=== PATIENT | male | born 1970 | race Caucasian/White ===

== ENCOUNTER 2017-06-25 11:17 | Day surgery (SDC) | payer OTHER, SELFPAY ==
[2017-06-25] VITALS (8 sets, daily range): BP systolic 117–133; BP diastolic 80–89; PULSE 61–78; RESP 16–18; TEMP 36.1–36.9; O2SAT 96–100; BMI 20.9
--- NOTE | 2017-06-25 11:28 | EKG12_ITS ---
Test Reason : PREOP Blood Pressure : / mmHG Vent. Rate : 067 BPM Atrial Rate : 067 BPM P-R Int : 152 ms QRS Dur : 086 ms QT Int : 392 ms P-R-T Axes : 056 067 027 degrees QTc Int : 414 ms Normal sinus rhythm Nonspecific T wave abnormality Abnormal ECG When compared with ECG of 01-SEP-2006 10:45, MANUAL COMPARISON REQUIRED, DATA IS UNCONFIRMED Confirmed by MARIJA GREENBERG ([id number]), marketing editor JONG PRADHAN ([id number] on 06/30/2017 4:08:48 PM Referred By: Marciano Paredes Confirmed By:MARIJA GREENBERG
[2017-06-25] MEDS: Cefazolin 2 GM in 0.9% Normal Saline 100 ML IV (13:27)
[2017-06-25] MEDS: Bupivacaine Mpf 0.5% 30 ML VIAL (14:20)
--- NOTE | 2017-06-25 14:31 | PCM.DC.HER ---
Discharge Diet: Light diet - advance as tolerated Discharge Activity: Return to Normal Activity, May Not Drive - for 2-3 days or while taking narcotic pain meds., May Shower - with the bandage in place 1-2 days after surgery. Lifting Restrictions: 20 pounds for 2 weeks. Additional Activity Instructions:: Climbing stairs is fine, walking is encouraged. Sitting in bed may be uncomfortable. Sitting up using your lateral muscles (sitting up sideways) is usually more comfortable. Do not drive, work heavy equipment of sign legal documents for 24 hours. If your hernia repair was an ingunial repair, you may have scrotal swelling, an ice pack and/or athletic support can provide more comfort. Pain medications may cause nausea, you should typically eat light foods as you take your pain medications. Pain medications may also cause constipation. If you have difficulty with this, discuss with your doctor. Call your doctor if your incision/area has: Continuous Slow Oozing, Sudden Increased Bleeding, Increased Pain/ Swelling, Increased Redness, Foul Smelling Discharge Call your doctor if you observe: Fever of 101 or Higher Suture Line Care: Avoid Pulling/Pushing, Avoid Pinching/Bending Change Dressing in (Days):: 3 - Leave steri-strips for 1 week. May protect with a guaze bandaid. Cleanse incision/area with: Keep Dressing Clean & Dry Allergies/Adverse Reactions: Allergies No Known Allergies Allergy (Unverified 06/24/17 09:54) Medications to take at Discharge bupropion HCl SR 150 mg tablet,12 hr sustained-release 450 mg PO QDAY 06/15/17 Oxycodone HCl/Acetaminophen [Percocet 5/325] 1 - 2 tablet PO Q4H PRN PRN 4 Days #10 tablet 06/25/17 The following prescriptions were given: Oxycodone HCl/Acetaminophen [Percocet 5/325] 1 - 2 tablet PO Q4H PRN PRN 4 Days #10 tablet PRN Reason: Pain Primary Care Physician: Jacob Curry MD [Primary Care Provider] - Please Follow Up With: Marciano Paredes MD When: Please call to schedule 2 week follow up appointment. [phone]
--- NOTE | 2017-06-25 14:33 | PCM.OPRPT ---
Problem List (1) Bilateral inguinal hernia, without obstruction or gangrene, not specified as recurrent Status: Acute Qualifiers: Recurrence: non-recurrent Qualified Code(s): K40.20 - Bilateral inguinal hernia, without obstruction or gangrene, not specified as recurrent Report of Operation Date of Procedure: 06/25/17 Pre-Operative Diagnosis: Right inguinal hernia Post-Operative Diagnosis: Bilateral inguinal hernia Surgery/Procedure Performed:: Robotic assisted laparoscopic bilateral inguinal hernia repair with mesh Specimen's removed: None Description of Procedure: The patient was brought back to the operating room and general anesthesia was induced. The abdomen was prepped and draped in usual sterile fashion. Next an incision was made superior to the umbilicus and deepened to the fascia. The fascia was grasped and elevated. A Veress needle was placed into the abdomen and a drop test was performed and was normal. The abdomen was then insufflated to 15 mmHg the Veress needle was then removed and a port was placed through this incision. A camera was placed through this incision and the abdomen was inspected for any injuries upon entry and there were none. Next the inguinal regions were inspected and the patient had bilateral inguinal hernias. We plan to proceed with bilateral inguinal hernia repair as discussed preoperatively. Under direct visualization a port was placed in the right and left lateral sidewall. The patient was then placed in steep Trendelenburg position and the robot was docked. First the right side was addressed. The peritoneum was incised and this dissection was carried inferiorly until the hernia sac was reduced. Once the dissection was fully completed a piece of pro-dialysis patient care technician mesh was trimmed and placed in the right inguinal region. The peritoneum was then reapproximated using a running V lock suture. There was good coverage of the mesh. Next attention was paid to the left inguinal region. The left inguinal hernia was actually larger than the right. The peritoneum on the side was incised and this dissection was taken inferiorly until the psoas muscle was reached. The hernia sac was reduced and dissected free. A piece of pro-dialysis patient care technician mesh was placed in the abdomen and unfolded and placed over the hernia defect. The peritoneum was re-approximated using a running V lock suture. At the end of the case both pieces of mesh were secure and completely covered with peritoneum. Next the instruments were removed and the robot was undocked. The ports were removed under direct visualization and the port sites were injected with lidocaine and closed with interrupted 4-0 Monocryl sutures. Steri-Strips and bandages were then applied. The patient was taken to PACU in stable condition tolerated the procedure well. Grafts/Implants Used: Pro-dialysis patient care technician mesh bilaterally
--- NOTE | 2017-06-25 15:08 | OP.PCM_ITS ---
Problem List (1) Bilateral inguinal hernia, without obstruction or gangrene, not specified as recurrent Status: Acute Qualifiers: Recurrence: non-recurrent Qualified Code(s): K40.20 - Bilateral inguinal hernia, without obstruction or gangrene, not specified as recurrent Report of Operation Date of Procedure: 06/25/17 Pre-Operative Diagnosis: Right inguinal hernia Post-Operative Diagnosis: Bilateral inguinal hernia Surgery/Procedure Performed:: Robotic assisted laparoscopic bilateral inguinal hernia repair with mesh Specimen's removed: None Description of Procedure: The patient was brought back to the operating room and general anesthesia was induced. The abdomen was prepped and draped in usual sterile fashion. Next an incision was made superior to the umbilicus and deepened to the fascia. The fascia was grasped and elevated. A Veress needle was placed into the abdomen and a drop test was performed and was normal. The abdomen was then insufflated to 15 mmHg the Veress needle was then removed and a port was placed through this incision. A camera was placed through this incision and the abdomen was inspected for any injuries upon entry and there were none. Next the inguinal regions were inspected and the patient had bilateral inguinal hernias. We plan to proceed with bilateral inguinal hernia repair as discussed preoperatively. Under direct visualization a port was placed in the right and left lateral sidewall. The patient was then placed in steep Trendelenburg position and the robot was docked. First the right side was addressed. The peritoneum was incised and this dissection was carried inferiorly until the hernia sac was reduced. Once the dissection was fully completed a piece of pro-hide stretcher hand mesh was trimmed and placed in the right inguinal region. The peritoneum was then reapproximated using a running V lock suture. There was good coverage of the mesh. Next attention was paid to the left inguinal region. The left inguinal hernia was actually larger than the right. The peritoneum on the side was incised and this dissection was taken inferiorly until the psoas muscle was reached. The hernia sac was reduced and dissected free. A piece of pro-hide stretcher hand mesh was placed in the abdomen and unfolded and placed over the hernia defect. The peritoneum was re-approximated using a running V lock suture. At the end of the case both pieces of mesh were secure and completely covered with peritoneum. Next the instruments were removed and the robot was undocked. The ports were removed under direct visualization and the port sites were injected with lidocaine and closed with interrupted 4-0 Monocryl sutures. Steri-Strips and bandages were then applied. The patient was taken to PACU in stable condition tolerated the procedure well. Grafts/Implants Used: Pro-hide stretcher hand mesh bilaterally
[2017-06-25] MEDS: oxyCODONE 5 MG Tablet PO (16:23)
== END 2017-06-25 17:04 | disposition home or self-care (01) ==
LOC: SDC 11:19 → AC 11:19
PROVIDERS: Family Provider Family Medicine; PCP Family Medicine; Visit Provider Surgery
PROC: (CPT 49650; principal; 2017-06-25 12:40)
DX: K40.00 Bilateral inguinal hernia, with obstruction, without gangrene, not specified as recurrent (principal); F32.9 Major depressive disorder, single episode, unspecified; K58.9 Irritable bowel syndrome, unspecified; F17.220 Nicotine dependence, chewing tobacco, uncomplicated; F17.200 Nicotine dependence, unspecified, uncomplicated; Z79.899 Other long term (current) drug therapy
CPT/HCPCS: 00840; 49650; 93005; J7120

== ENCOUNTER 2018-09-06 17:52 | Emergency (ER) | payer OTHER, SELFPAY ==
[2018-09-06 17:54] VITALS: BP 117/66; PULSE 81; RESP 18; TEMP 36.5; O2SAT 97; BMI 19.3
[2018-09-06 18:13] LABS: Bacteria 0 SEEN /hpf (None Seen); Mucous, Urine 0 SEEN /hpf (<or=2+); Squamous Epithelial Cells - UA 0 SEEN /hpf (0-5)
[2018-09-06 18:16] LABS: Color, Urine Yellow (Yellow); Glucose, Dipstick Normal (Normal); Ketone-Dipstick 5 mg/dl (Negative); Leukocyte Esterase-Dipstick Negative /ul (Negative); Nitrite-Dipstick Negative (Negative); Occult Blood-Urine 250 /ul (Negative); Protein-Dipstick 30 mg/dl (Negative); Specific Gravity, Urine 1.025 (1.002-1.030); Urine Bilirubin Dipstick Negative (Negative); Urine Clarity Cloudy (Clear); Urine Urobilinogen 1 mg/dl (Normal)
[2018-09-06] MEDS: 0.9% Normal Saline 1,000 ML 1000 ML IV (18:17)
--- NOTE | 2018-09-06 18:19 | ED.DCSUM_ITS ---
History of Present Illness Chief Complaint: Complaint Informant: Patient Onset: Today Context: Gradual Onset Timing: Continuous Current Severity: Moderate Maximum Severity: Moderate Narrative: The patient presents to the emergency department with dysuria, along with hematuria. He states he was in his normal state of health. He states that he was running today. He did a 3 mile run which is not abnormal for him. He states that he is having some pain in his penis and in his bladder. He states when he got back, he urinated and noticed a lot of blood. He is never had anything like this before. He denies any fevers or chills. He denies any history of kidney stone. The patient takes no anticoagulants. He is only on a daily antidepressant. He denies any penile discharge. He denies any pain in his groin. Prior similar symptoms: No Recent Illness/Hospitalization: No Past Medical History - Allergies and Home Meds Allergies/Adverse Reactions: Allergies No Known Allergies Allergy (Verified 09/06/18 17:53) Primary Care Physician: Jama Wright MD [STAFF PHYSICIAN] - Past Medical History: None Surgical History: herniorrhaphy Lives: With Family Smoking Status: Never smoker Alcohol: None Drugs: None Review of Systems General: Denies: Chills, Fever, Sweats Eyes: Denies: Visual changes - bilaterally, Diplopia ENT: Denies: Rhinorrhea, Sore throat Cardiovascular: Denies: Chest pain, Palpitations Respiratory: Denies: Dyspnea, Cough, Dyspnea on exertion Gastrointestinal: Denies: Abdominal pain, Nausea, Vomiting, Diarrhea, Melena, Hematochezia Genitourinary: Reports: Dysuria, Hematuria Musculoskeletal: Denies: Back pain, Extremity Pain Skin: Denies: Rash, Wounds Neurological: Denies: Headache, Weakness, Numbness Psych: Denies: Depression Endocrine: Denies: Polyuria Physical Exam Vital Signs/Narrative: Vital Signs Temp Pulse Resp BP Pulse Ox 09/06/18 17:54 97.7 F L 81 18 117/66 97 Inital Vital Signs reviewed: Yes General: Well nourished, Well developed, No Acute Distress Head: Normocephalic, Atraumatic Eyes: Perrl, EOMI ENT: Moist mucous membranes, No rhinorrhea Neck: Supple, Nontender Cardiovascular: Regular rate, Regular rhythm, No murmurs Respiratory: No distress, CTA bilaterally, Chest nontender Abdomen: Soft, Nontender, Normal bowel sounds, Tender - suprapubic Back: Nontender, Normal Inspection Extremities: Nontender, No edema Skin: Normal color, No rash Neurological: Alert, Oriented x3, Cranial nerves II-XII grossly intact, Normal Strength, Normal Sensation Psychological: Normal affect, Normal Mood Diagnostic/Tx/Re-eval Clinical Impression(s) from Imaging Studies Abdomen/Pelvis CT 09/06/18 18:37 IMPRESSION: Nonobstructing cascades are seen within the right kidney No stones are seen within the ureters and the ureters are not dilated. There are vascular cascades and seen within the pelvis If symptoms persist consider repeating study with intravenous contrast for further evaluation Individualized dose optimization techniques were used for this CT. at 1917 Reported and signed by: Keily Mccarty DO Electronically Signed: Keily Mccarty DO at 19:15 EDT Tel , Service support , Abnormal Lab Results 09/06/18 09/06/18 09/06/18 18:00 18:15 18:15 WBC 10.0 RBC 4.73 Hgb 14.8 Hct 42.7 MCV 90.3 MCH 31.3 MCHC 34.7 RDW 12.3 RDW Differential 40.7 Plt Count 233 MPV 9.6 Immature Gran % (Auto) 0.100 Neut % (Auto) 75.2 H Lymph % (Auto) 17.3 L Richardson % (Auto) 6.5 Eos % (Auto) 0.7 Baso % (Auto) 0.2 Absolute Neuts (auto) 7.5 Absolute Lymphs (auto) 1.73 Total Counted Not Reportable Sodium 140 Potassium 3.3 L Chloride 108 H Carbon Dioxide 27.0 Anion Gap 5 BUN 15 Creatinine 1.23 Estim Creat Clear Calc 63.58 Est GFR (MDRD) Af Amer 81 Est GFR (MDRD) Non-Af 67 BUN/Creatinine Ratio 12.2 Glucose 88 Calcium 9.4 Total Bilirubin 0.60 AST 21 ALT 28 Alkaline Phosphatase 57 Total Protein 7.5 Albumin 4.1 Globulin 3.4 Albumin/Globulin Ratio 1.2 Urine Color Yellow Urine Clarity Cloudy Urine pH 6.0 Ur Specific [place] 1.025 Urine Protein 30 H Urine Glucose (UA) Normal Urine Ketones 5 H Urine Occult Blood 250 H Urine Nitrite Negative Urine Bilirubin Negative Urine Urobilinogen 1 H Ur Leukocyte Esterase Negative Urine RBC > 100 SEEN Urine WBC 0-5 SEEN Ur Squamous Epith Cells 0 SEEN Urine Bacteria 0 SEEN Urine Mucus 0 SEEN - Medical Decision Making The patient presents to the emergency department with hematuria and pain. Clinically, his symptoms do seem consistent with kidney stone. His urine does show evidence of blood but no infection. Labs unremarkable. He declined analgesics. CT shows some stones within the right kidney, but nothing within the tract. My suspicion is that he likely passed a stone. He will be given a short course of analgesics and outpatient urology follow-up. He is comfortable with this plan of care. ED Disposition - Plan for ED Patient: Disposition: Home or Assisted Living Diagnosis: Kidney stone on right side Instructions: KIDNEY STONE, Passed Prescriptions: Hydrocodone Bitart/Apap 5-325 [[place] 5MG-325MG] 1 tab PO Q6H PRN PRN 3 Days #10 tab PRN Reason: Pain Prescription Printed Referrals: Jama Wright MD [STAFF PHYSICIAN] -
[2018-09-06 18:35] LABS: Absolute Lymphocyte Count 1.73 X10^3/ul (0.83-4.51); Absolute Neutrophil Count 7.5 X10^3/uL (2.0-7.7); Basophil# 0.02 X10^3/uL; Basophil% 0.2 % (0-1); Eosinophil# 0.07 X10^3/uL; Eosinophils% 0.7 % (0-5); Hematocrit 42.7 % (40-54); Hemoglobin 14.8 g/dl (13.0-16.5); Lymphocyte # 1.73 X10^3/ul (4.0); Lymphocyte % 17.3 % (19-41); Mean Corp Hgb Conc 34.7 g/gl (32-36); Mean Corpuscular Hgb 31.3 pg (27.0-32.0); Mean Corpuscular Volume 90.3 fL (80-94); Mean Platelet Vol. 9.6 fl (6.2-12.0); Monocyte# 0.65 X10^3/uL; Monocyte% 6.5 % (0-10); Neutrophil # 7.51 X10^3/uL (2.7-7.7); Neutrophil % 75.2 % (47-70); Platelet Count 233 K/mm3 (150-450); RBC Distribution Width CV 12.3 % (11.6-14.6); RBC Distribution Width SD 40.7 fl (35.1-43.9); Red Blood Count 4.73 M/mm3 (4.6-6.2)
--- NOTE | 2018-09-06 18:37 | CT_ITS ---
HISTORY:RT FLANK PAIN, HEMATURIA AFTER 3 MILE RUN, DIZZINESS TECHNIQUE:CT Abdomen And Pelvis W/O Contrast Axial CT images were obtained of the abdomen and pelvis without oral or IV contrast. Multiplanar rectructions were also obtained. A radiation dose optimization technique was used for this scan. # of images including paperwork:[id number] COMPARISON: None FINDINGS: LUNG BASES: Unremarkable. LIVER T BILIARY TRACT: Unremarkable. GALLBLADDER:No cholelithiasis. No intra-or extrahepatic ductal dilatation PANCREAS: Unremarkable for nonenhanced study SPLEEN: Unremarkable. ADRENAL GLANDS: Unremarkable. KIDNEYS/URETERS:There are nonobstructing calcification seen within the right kidney there is no hydronephrosis. I do not see stones within the ureters out of the distal ureters are not well visualized on the study BLADDER: Unremarkable. STOMACH, SMALL AND LARGE BOWEL: The stomach is unremarkable as is the small bowel There is no mechanical obstruction. There is retained fecal material throughout the colon. No diverticulitis APPENDIX: No appendicitis. ASCITES: Unremarkable. FREE AIR: Unremarkable. PELVIS: Unremarkable. AORTA: Unremarkable. LYMPH NODES: Unremarkable. OSSEOUS STRUCTURES: Unremarkable. CT/Abdomen/Pelvis without Cont IMPRESSION: Nonobstructing cascades are seen within the right kidney No stones are seen within the ureters and the ureters are not dilated. There are vascular cascades and seen within the pelvis If symptoms persist consider repeating study with intravenous contrast for further evaluation Individualized dose optimization techniques were used for this CT. at 1917 Reported and signed by: Keily Mccarty DO Electronically Signed: Keily Mccarty DO at 19:15 EDT Tel , Service support ,
[2018-09-06 18:38] LABS: Red Blood Cells-Urine > 100 SEEN /hpf (0-5); White Blood Cells 0-5 SEEN /hpf (0-5)
[2018-09-06 18:38] LABS: POSITIVE COUNT NO; POSITIVE DIFFERENTIAL NO; POSITIVE MORPHOLOGY NO
[2018-09-06 19:06] LABS: ALB/GLOB Ratio 1.2 RATIO (0.9-2.4); AST(SGOT) 21 U/L (15-37); Alanine Aminotransfer ALT/SGPT 28 U/L (16-61); Albumin, Serum 4.1 g/dL (3.2-5.0); Alkaline Phosphatase 57 U/L (45-117); Anion Gap 5 (5-15); BUN 15 mg/dL (7-18); BUN/Creat Ratio 12.2 RATIO (10-20); Calcium,Total 9.4 mg/dL (8.5-10.1); Chloride 108 mmol/L (98-107); Creatinine, Serum 1.23 mg/dL (0.70-1.30); EST Glomerular Filtration Rate 67 mL/min (>60); Est Glom Filt Rate - Afr Amer 81 mL/min (>60); Estimated Creatinine Clearance 63.58 ml/min; Globulin 3.4 g/dL (2.2-4.2); Glucose 88 mg/dL (74-106); Potassium 3.3 mmol/L (3.5-5.1); Protein, Total 7.5 g/dL (6.4-8.2); Sodium Level 140 mmol/L (136-145)
[2018-09-06 19:44] VITALS: BP 116/76; PULSE 91; RESP 16; O2SAT 97
== END 2018-09-06 19:45 | disposition home or self-care (01) ==
PROVIDERS: Emergency Provider Emergency Medicine; Family Provider Family Medicine; PCP Family Medicine
DX: N20.0 Calculus of kidney (principal)
CPT/HCPCS: 74176; 80053; 81001; 85025; 96360; 99284; J7030; A4216

== ENCOUNTER → 2018-10-22 08:07 | Outpatient (CLI) | payer OTHER, SELFPAY ==
[2018-10-22 08:03] VITALS: BMI 19.3
--- NOTE | 2018-10-22 08:08 | RAD_ITS ---
STUDY: X-RAY - LEFT KNEE REASON FOR EXAM: Chronic pain, no specific injury. TECHNIQUE: 4 view(s) of the knee. COMPARISON: None. FINDINGS: Normal visualized distal femur. Normal visualized proximal tibia and fibula. Normal proximal tibiofibular articulation. Normal medial femorotibial compartment. Normal lateral femorotibial compartment. Normal patellofemoral articulation. There is mild patellar tendinopathy. RAD/Knee 4 or More Views IMPRESSION: Mild patellar enthesopathy. Otherwise, unremarkable x-ray examination of the left knee. Electronically Signed: Stevie Stewart MD at 9:00 EDT Tel , Service support ,
== END ==
PROVIDERS: Family Provider Family Medicine; PCP Family Medicine; Referring Provider Orthopaedic Surgery; Visit Provider Orthopaedic Surgery
DX: M25.562 Pain in left knee (principal)
CPT/HCPCS: 73564

== ENCOUNTER → 2019-07-19 14:59 | Outpatient (CLI) | payer OTHER, SELFPAY ==
[2018-10-22 08:03] VITALS: BMI 19.3
[2019-07-19 17:44] LABS: Absolute Lymphocyte Count 2.67 X10^3/uL (0.83-4.51); Absolute Neutrophil Count 3.7 X10^3/uL (2.0-7.7); Basophil# 0.04 X10^3/uL; Basophil% 0.5 % (0-1); Eosinophil# 0.16 X10^3/uL; Eosinophils% 2.2 % (0-5); Hematocrit 44.1 % (40-54); Hemoglobin 14.9 g/dL (13.0-16.5); Lymphocyte # 2.67 X10^3/ul (4.0); Lymphocyte % 36.6 % (19-41); Mean Corp Hgb Conc 33.8 g/dL (32-36); Mean Corpuscular Hgb 30.6 pg (27.0-32.0); Mean Corpuscular Volume 90.6 fL (80-94); Mean Platelet Vol. 9.6 fl (6.2-12.0); Monocyte# 0.68 X10^3/uL; Monocyte% 9.3 % (0-10); NRBC Flagged by Analyzer 0 % (0-5); Neutrophil # 3.72 X10^3/uL (2.7-7.7); Neutrophil % 51.1 % (47-70); Platelet Count 281 K/mm3 (150-450); RBC Distribution Width CV 12.6 % (11.6-14.6); RBC Distribution Width SD 41.9 fl (35.1-43.9); Red Blood Count 4.87 M/mm3 (4.6-6.2); White Blood Count 7.3 K/mm3 (4.4-11.0)
[2019-07-19 17:52] LABS: Erythrocyte Sedimentation Rate 3 mm/hr (0-15)
[2019-07-19 18:12] LABS: ALB/GLOB Ratio 1.1 RATIO (0.9-2.4); AST(SGOT) 36 U/L (15-37); Alanine Aminotransfer ALT/SGPT 81 U/L (16-61); Albumin, Serum 3.8 g/dL (3.2-5.0); Alkaline Phosphatase 61 U/L (45-117); Anion Gap 8 (5-15); BUN 11 mg/dL (7-18); BUN/Creat Ratio 11.5 RATIO (10-20); CRP < 2.90 mg/L (0.0-3.0); Calcium,Total 8.9 mg/dL (8.5-10.1); Chloride 106 mmol/L (98-107); Creatinine, Serum 0.96 mg/dL (0.70-1.30); EST Glomerular Filtration Rate 89 mL/min (>60); Est Glom Filt Rate - Afr Amer 107 mL/min (>60); Globulin 3.4 g/dL (2.2-4.2); Glucose 84 mg/dL (74-106); Protein, Total 7.2 g/dL (6.4-8.2); Rheumatoid Factor < 10.0 IU/mL (<15); Sodium Level 141 mmol/L (136-145); T4 Free Direct 0.72 ng/dL (0.76-1.46); Thyroid Stim Hormone (TSH) 1.83 uIU/mL (0.358-3.74)
[2019-07-22 00:45] LABS: Anti-Nuclear Antibody Test Negative (.)
[2019-07-24 01:12] LABS: CCP IgG Antibodies 9 units (0-19)
== END ==
PROVIDERS: PCP Family Medicine; Referring Provider Family Medicine; Visit Provider Family Medicine
DX: M06.4 Inflammatory polyarthropathy (principal); K59.00 Constipation, unspecified; R60.9 Edema, unspecified; R61 Generalized hyperhidrosis
CPT/HCPCS: 36415; 80053; 84439; 84443; 85025; 85652; 86038; 86140; 86200; 86431

== ENCOUNTER → 2019-10-12 15:10 | Outpatient (CLI) | payer OTHER, SELFPAY ==
[2018-10-22 08:03] VITALS: BMI 19.3
[2019-10-12 17:26] LABS: Anion Gap 9 (5-15); BUN 11 mg/dL (7-18); BUN/Creat Ratio 7.8 RATIO (10-20); Calcium,Total 8.9 mg/dL (8.5-10.1); Chloride 103 mmol/L (98-107); Creatinine, Serum 1.41 mg/dL (0.70-1.30); EST Glomerular Filtration Rate 57 mL/min (>60); Est Glom Filt Rate - Afr Amer 69 mL/min (>60); Glucose 79 mg/dL (74-106); Magnesium 2.3 mg/dL (1.6-2.6); Potassium 3.4 mmol/L (3.5-5.1); Sodium Level 139 mmol/L (136-145)
== END ==
PROVIDERS: PCP Family Medicine; Visit Provider Family Medicine
DX: E87.6 Hypokalemia (principal)
CPT/HCPCS: 36415; 80048; 83735

== ENCOUNTER 2020-04-27 08:47 | Emergency (ER) | payer OTHER, SELFPAY ==
[2020-04-27 08:48] VITALS: BP 151/87; PULSE 91; RESP 16; TEMP 36.1; O2SAT 100; BMI 21.4
--- NOTE | 2020-04-27 09:02 | MRI_ITS ---
STUDY: MRI LUMBAR SPINE WITHOUT CONTRAST REASON FOR EXAM: Male, 49 years old. Back pain, L4/L5 paresthesias on left TECHNIQUE: Standardized fat and water weighted pulse sequences were obtained in the sagittal and axial planes. COMPARISON: CT abdomen and pelvis without contrast 09/06/2018. FINDINGS: T11-T12: (Sagittal only). Normal endplates. Normal disc height, hydration and morphology. Normal central canal and bilateral intervertebral neural foramina. T12-L1: (Sagittal only). Normal endplates. Normal disc height, hydration and morphology. Normal central canal and bilateral intervertebral neural foramina. Normal lumbar lordosis. There is no substantial scoliosis. Normal conus medullaris that terminates at the upper T12 vertebral body level. L1-2: Normal endplates. Normal disc height, hydration and morphology. Normal bilateral facet joints. Normal central canal and bilateral lateral recesses. Normal bilateral intervertebral neural foramina. L2-3: Normal endplates. Normal disc height, hydration and morphology. Normal bilateral facet joints. Normal central canal and bilateral lateral recesses. Normal bilateral intervertebral neural foramina. L3-4: Normal endplates. Normal disc height, hydration and morphology. Moderate flattening central canal stenosis with an AP canal diameter of 7.4 mm. This is secondary to developmentally short pedicles and dorsal epidural lipomatosis. Normal bilateral lateral recesses. Normal facet joints. Normal bilateral intervertebral neural foramina. L4-5: Normal endplates. Normal disc height and hydration. Small left posterior caudal disc extrusion with sequestration. This is causing left lateral recess stenosis and displacement of the left L5 nerve root sleeve. This is also causing moderately pronounced central canal stenosis with an AP canal diameter of 5.2 mm. Normal right lateral recess. Normal facet joints. Normal bilateral intervertebral neural foramina. L5-S1: Normal endplates. Normal disc height, hydration and morphology. Normal bilateral facet joints. Normal central canal and bilateral lateral recesses. Normal bilateral intervertebral neural foramina. Normal visualized sacral ala. Normal visualized paraspinous soft tissue structures. MRI/Spine Lumbar (Routine) IMPRESSION: 1. Small left L4-L5 posterior caudal disc extrusion with disc sequestration causing displacement of the left L5 nerve root sleeve, left lateral recess stenosis and moderately pronounced central canal stenosis. The AP canal diameter is 5.2 mm. When correlated with the CT abdomen and pelvis of 09/06/2018, this was a left L4-L5 posterior paramedian disc protrusion. The caudal disc extrusion with sequestration is a new finding. 2. Moderate flattening central canal stenosis at L3-L4 disc space level with an AP canal diameter of 7.4 mm. This is secondary to developmentally short pedicles and mild dorsal epidural lipomatosis. This is unchanged. Electronically Signed: Rustam Smith MD at 10:41 EST , Service support ,
--- NOTE | 2020-04-27 09:05 | ED.DCSUM_ITS ---
- ER Visit Summary Date of Service: 04/27/20 Chief Complaint: Back pain History of Present Illness: The patient is a [address] Jacob Curry. He reports that 3 days ago he was lifting a large chunk of snow when he felt an immediate pinch and stabbing pain in his back. Reports pain is 10 of 10 with movement 6 out of 10 at rest. Pain is worsened by standing up. Initially states pain is worsened by sitting or laying down. He is taking prednisone and Flexeril with minimal relief. Reports that radiates into his left leg. He denies any weakness in his legs. However he reports that he has paresthesias in his left foot. He denies problems with his bowels or his bladder. No groin numbness. Patient has never had anything like this before. He has not had back surgery. He denies fever, chills, and other red flags. On review of systems he does report he has had dysuria for the past 3 days. He has frequency for 2 months. Physical Examination: Vitals: Stable. Afebrile. General: A&O x 3. NAD. Cardiovascular exam: Regular rate and rhythm, no murmur, rub or gallop. Respiratory exam: Clear to auscultation bilaterally. No wheezes or stridor. Abdominal exam: Soft, nontender, nondistended, normal bowel sounds. No peritoneal signs. Back: Diffuse moderate tenderness to palpation over the lumbar spine and the paraspinous musculature in the lumbar region. No point tenderness. Negative straight leg bilaterally. 5/5 DF, PF, EHL bilaterally. Decreased sensation to light touch in an L4/L5 distribution to the left leg, but not the left thigh. Extremity: No clubbing, cyanosis, or edema. Test Results: CBC shows a white count of 14.0, stable neutrophils 87, lymphocytes of 9. Chem-7 shows a potassium 3.4, creatinine 1.3, glucose 161. Creatinine was 1.41 on October [id number]. UA is negative. Clinical Impression(s) from Imaging Studies Lumbar Spine MRI 04/27/20 09:02 IMPRESSION: 1. Small left L4-L5 posterior caudal disc extrusion with disc sequestration causing displacement of the left L5 nerve root sleeve, left lateral recess stenosis and moderately pronounced central canal stenosis. The AP canal diameter is 5.2 mm. When correlated with the CT abdomen and pelvis of 09/06/2018, this was a left L4-L5 posterior paramedian disc protrusion. The caudal disc extrusion with sequestration is a new finding. 2. Moderate flattening central canal stenosis at L3-L4 disc space level with an AP canal diameter of 7.4 mm. This is secondary to developmentally short pedicles and mild dorsal epidural lipomatosis. This is unchanged. Electronically Signed: Rustam Smith MD at 10:41 EST , Service support , Emergency Department Course and Treatment: Patient had an IV placed. Is given morphine and Zofran IV. He is resting more comfortably. Treatment Plan: The patient was discussed with Dr. Turner who will see him next week. He does not want him put on more steroids. He will be discharged with prescription for Percocet. We did discuss the signs and symptoms of cauda equina syndrome and he was instructed to return for these. Disposition: To home in improved and stable condition. Impression: 1. L4/L5 disc herniation. This note was generated with [employer] dictation software. It may contain incorrect words, spelling, and punctuation that were not noted in review of the chart prior to signing ED Disposition - Plan for ED Patient: Instructions: ED Herniated Intervertebral Disk Prescriptions: Docusate Sodium [Colace] 100 mg PO DAILY #20 capsule Oxycodone HCl/Acetaminophen [Percocet 5/325] 1 tablet PO Q6H PRN PRN 3 Days #12 tablet PRN Reason: Pain Referrals: Elliott Tunrer DO [STAFF PHYSICIAN] - 3-5 Days
[2020-04-27] MEDS: Ondansetron 4 MG/2 ML Vial IV (09:12)
[2020-04-27] MEDS: Morphine 4 MG/ML Syringe IV (09:12)
[2020-04-27 09:15] LABS: Bacteria 0 SEEN /hpf (None Seen); Mucous, Urine 0 SEEN /hpf (<or=2+); Red Blood Cells-Urine 0 SEEN /hpf (0-5); Squamous Epithelial Cells - UA 0 SEEN /hpf (0-5); White Blood Cells 0 SEEN /hpf (0-5)
[2020-04-27 09:17] LABS: Color, Urine Yellow (Yellow); Glucose, Dipstick Normal (Normal); Ketone-Dipstick Negative (Negative); Leukocyte Esterase-Dipstick Negative /ul (Negative); Nitrite-Dipstick Negative (Negative); Occult Blood-Urine 10 /ul (Negative); Protein-Dipstick Negative (Negative); Urine Bilirubin Dipstick Negative (Negative); Urine Clarity Clear (Clear); Urine Urobilinogen Normal (Normal)
[2020-04-27 09:24] LABS: Absolute Lymphocyte Count 1.27 X10^3/uL (0.83-4.51); Absolute Neutrophil Count 12.2 X10^3/uL (2.0-7.7); Basophil# 0.02 X10^3/uL; Basophil% 0.1 % (0-1); Eosinophil# 0.02 X10^3/uL; Eosinophils% 0.1 % (0-5); Hematocrit 45.2 % (40-54); Hemoglobin 15.1 g/dL (13.0-16.5); Lymphocyte # 1.27 X10^3/ul (4.0); Lymphocyte % 9.1 % (19-41); Mean Corp Hgb Conc 33.4 g/dL (32-36); Mean Corpuscular Hgb 31.3 pg (27.0-32.0); Mean Corpuscular Volume 93.8 fL (80-94); Mean Platelet Vol. 9.3 fl (6.2-12.0); Monocyte# 0.41 X10^3/uL; Monocyte% 2.9 % (0-10); NRBC Flagged by Analyzer 0 % (0-5); Neutrophil # 12.18 X10^3/uL (2.7-7.7); Neutrophil % 87.2 % (47-70); Platelet Count 269 K/mm3 (150-450); RBC Distribution Width CV 12.6 % (11.6-14.6); Red Blood Count 4.82 M/mm3 (4.6-6.2)
[2020-04-27 09:37] LABS: Anion Gap 8 (5-15); BUN 10 mg/dL (7-18); BUN/Creat Ratio 7.2 RATIO (10-20); Calcium,Total 9.1 mg/dL (8.5-10.1); Chloride 105 mmol/L (98-107); Creatinine, Serum 1.38 mg/dL (0.70-1.30); EST Glomerular Filtration Rate 58 mL/min (>60); Est Glom Filt Rate - Afr Amer 70 mL/min (>60); Estimated Creatinine Clearance 59.58 ml/min; Glucose 161 mg/dL (74-106); Potassium 3.4 mmol/L (3.5-5.1); Sodium Level 141 mmol/L (136-145)
[2020-04-27] MEDS: 0.9% Normal Saline 1,000 ML 999 ML IV (10:31)
[2020-04-27 10:47] VITALS: PULSE 89; RESP 15; O2SAT 99
[2020-04-27 11:34] VITALS: PULSE 86; RESP 16; O2SAT 99
== END 2020-04-27 11:35 | disposition home or self-care (01) ==
LOC: ED 09:25
PROVIDERS: Emergency Provider Emergency Medicine; PCP Family Medicine
DX: M51.26 Other intervertebral disc displacement, lumbar region (principal)
CPT/HCPCS: 72148; 80048; 81001; 85025; 96374; 96375; 99283; J7030; A4216; J2405

== ENCOUNTER 2020-05-17 05:04 | Inpatient (IN) | payer OTHER, SELFPAY ==
[2020-05-02 14:26] VITALS: BMI 21.9
--- NOTE | 2020-05-09 08:43 | EKG12_ITS ---
Test Reason : PRE OP Blood Pressure : / mmHG Vent. Rate : 087 BPM Atrial Rate : 087 BPM P-R Int : 162 ms QRS Dur : 088 ms QT Int : 340 ms P-R-T Axes : 075 082 028 degrees QTc Int : 409 ms Normal sinus rhythm Septal infarct , age undetermined Abnormal ECG Confirmed by LAVERNE ALMODOVAR, LUCY ([id number]), editor news ALKA CASTAÑEDA ([id number]) on 05/10/2020 11:06:06 AM Referred By: YARI Confirmed By:LUCY GALLOWAY MD
[2020-05-09 09:38] LABS: Absolute Lymphocyte Count 2.14 X10^3/uL (0.83-4.51); Absolute Neutrophil Count 9.3 X10^3/uL (2.0-7.7); Basophil# 0.03 X10^3/uL; Basophil% 0.2 % (0-1); Eosinophil# 0.07 X10^3/uL; Eosinophils% 0.6 % (0-5); Hematocrit 47.1 % (40-54); Hemoglobin 15.3 g/dL (13.0-16.5); Lymphocyte # 2.14 X10^3/ul (4.0); Lymphocyte % 17.3 % (19-41); Mean Corp Hgb Conc 32.5 g/dL (32-36); Mean Corpuscular Hgb 30.2 pg (27.0-32.0); Mean Corpuscular Volume 93.1 fL (80-94); Mean Platelet Vol. 8.9 fl (6.2-12.0); Monocyte% 5.7 % (0-10); NRBC Flagged by Analyzer 0 % (0-5); Neutrophil # 9.29 X10^3/uL (2.7-7.7); Neutrophil % 75.1 % (47-70); Platelet Count 264 K/mm3 (150-450); RBC Distribution Width CV 12.3 % (11.6-14.6); RBC Distribution Width SD 42.1 fl (35.1-43.9); Red Blood Count 5.06 M/mm3 (4.6-6.2); White Blood Count 12.4 K/mm3 (4.4-11.0)
[2020-05-09 10:02] LABS: Anion Gap 7 (5-15); BUN 21 mg/dL (7-18); BUN/Creat Ratio 17.4 RATIO (10-20); Calcium,Total 9.2 mg/dL (8.5-10.1); Chloride 102 mmol/L (98-107); Creatinine, Serum 1.21 mg/dL (0.70-1.30); EST Glomerular Filtration Rate 67 mL/min (>60); Est Glom Filt Rate - Afr Amer 82 mL/min (>60); Glucose 98 mg/dL (74-106); Potassium 3.9 mmol/L (3.5-5.1); Sodium Level 139 mmol/L (136-145)
[2020-05-09 10:11] LABS: Magnesium 2.4 mg/dL (1.6-2.6)
[2020-05-09 10:31] LABS: HIV - WCH Non-Reactive (Nonreactive)
[2020-05-10 06:07] LABS: HEPATITIS B SURFACE AG Negative (Negative); Hepatitis A AB, Total Negative (Negative); Hepatitis A IgM Antibody Negative (Negative); Hepatitis B Core AB IgM Negative (Negative); Hepatitis B Core Ab Total Negative (Negative); Hepatitis C Ab <0.1 s/co ratio (0.0-0.9)
[2020-05-10 09:49] LABS: Hep B Surface Antibodies Non Reactive (.)
[2020-05-17] VITALS (13 sets, daily range): BP systolic 99–138; BP diastolic 58–81; PULSE 86–107; RESP 16–18; TEMP 36.7–37.6; O2SAT 93–100; BMI 22.1
--- NOTE | 2020-05-17 | DISC_PTH ---
PATIENT: ABRAHAM CALIX LOC: MS3 U#:[id number] AGE/SX: 49/M [place] [facility] [place]: Dr. Boris Mata DO : 1970 BED: 1 DIS: 05/22/2020 SPEC #: [id number] RECD: 05/17/20 15:43 STATUS: ARABELLA REQ #: [id number] AUREA: 05/17/20 00:[address]: Elliott Turner DEPT: SURGICAL PATHOLOGY RECD BY: Marvin Tripp ENTERED: 05/18/20 07:57 SP TYPE: DISC OTHR DR: MD Dr. Jacob Nesbitt MD Tissues: Intervertebral disc, NOS Procedures: Surgery Specimen Level III HEADER OPERATION: ERAS, 360 fusion L4-5, laminectomy L4-5 PRE-OP DIAGNOSIS: Herniated nucleus pulposus lumbar TISSUE SUBMITTED: Lumbar disc MICROSCOPIC DIAGNOSIS Lumbar disc, L4-5, laminectomy: Fragments of intervertebral disc with degenerative change. AM:ramy 05/21/2020 MICROSCOPIC DESCRIPTION Slides are reviewed. GROSS DESCRIPTION Received in fixative is one container labeled with the patient's name and designated lumbar disc. The specimen consists of multiple irregular fragments of indurated, light sigala soft tissue that in aggregate measure 5 x 5 x 1.8 cm. Scooping Machine Tender portions are submitted in one cassette. / AM:ramy 05/18/20 TC:5 CPT: 97458
[2020-05-17] MEDS: Lactated Ringers 1,000 ML 100 ML IV ×2 (05:50→22:06)
--- NOTE | 2020-05-17 06:00 | HP_ITS ---
Intake Vital Signs 05/02/20 Height 5 ft 9 in 05/02/20 Weight: 149 lb 05/02/20 BMI 21.9 Intake Visit Reasons: Lumbar Spine Accompanied by: Spouse Is patient in pain?: Yes Allergies No Known Allergies Allergy (Verified 05/02/20 14:26) Medications Cyclobenzaprine HCl 10 mg PO TID PRN PRN 04/27/20 [History Confirmed 05/02/20] Docusate Sodium [Colace] 100 mg PO DAILY #20 cap 04/27/20 [Rx Confirmed 05/02/20] Prednisone 10 mg PO DAILY 04/27/20 [History Confirmed 05/02/20] oxycodone-acetaminophen 5 mg-325 mg tablet tab PO 05/02/20 [History Confirmed 05/02/20] [facility] Medical History (Updated 09/07/18 @ 00:01 by Indra Delgado) Depression (Acute) Surgical History Bilateral inguinal hernia (Acute) H/O foot surgery (Acute) Family History (Updated 05/02/20 @ 14:34 by Radha Hernandez) Mother Cancer History of heart valve repair Social History (Updated 05/02/20 @ 16:[address] Elliott Turner DO) household members: spouse, children housing: house number of children: 2 Smoking Status: Current every day smoker tobacco type: smokeless tobacco Tobacco: How many years used: 20 Smokeless tobacco user: snuff alcohol intake: never what type of physical activity do you participate in: running, bicycling, weight training do you feel safe at home: Yes HPI Lumbar Spine: Details: Parts of this documentation were recorded by a scribe, this documentation accurately reflects the service provided and the decisions made by me, Dr. Elliott Turner DO 05/02/20 1416. ABRAHAM CALIX is a 49 year old M here today to establish as a new patient. Patient was in the [facility] ER on 04/27/20. Patient was playing with his son in the snow. Attempting to picking supervisor a snow ball and experienced immediate pain. This happened a week prior to his ER visit. Patient denies any accident or injury previously. Pain is radiating to his left leg and effecting his toes. Spencer is a most pleasant gentleman 49 years old. 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 About 8 days or so ago while rolling a large snowball to make a snowman in order to help his son make it he picked it up and felt severe pain in his low back that a few hours later started going down his left leg. Is never had pain like this before. He ended up in the emergency room a couple or 3 days later. An MRI scan was done. The pain has been very severe. He has been given a Medrol Dosepak which only barely cut the pain. He has had some problems to with urinary retention. It is hard to start his stream and when he is done he feels like he has not emptied his bladder. In addition he feels weakness in his left foot. On examination it is noted that he has marked weakness of the EHL on the left as compared to the right. He cannot fully extend the big toe. He also has some anterior tibialis weakness and some peroneal weakness on the left. He has a decreased Achilles reflex on the left as compared to the right. His posterior tibial reflex on the left is also about absent compared to the one on the right which is 2+. He has very positive tension signs and very positive straight leg raising. He has trouble standing on his toes though he can do it. He has no long tract signs. Clonus is absent Babinski's are downgoing. I reviewed the MRI scan that was done it demonstrates that he has a sequestered fragment at L4-5 that has gone down behind the L5 vertebral body blocking about 50% of the canal. It is no wonder that he is in as much pain as he is. Because he has urinary retention and marked weakness of the EHL anterior tibialis and peroneals on his left side he basically has an impending cauda equina syndrome. Because of the severity of this condition he is not a candidate for physical therapy, anti-inflammatories, home exercises, epidural injections, or any other form of conservative treatment. In fact epidural steroid injections could increase the extra thecal pressure and pushed him into a full-blown cauda equina syndrome. Therefore epidural injections are contraindicated. Physical therapy likewise is contraindicated as this could only serve to make his condition worse and even extrude more fragment. He needs surgical intervention as soon as is reasonably possible. Because of his very active lifestyle including mountain biking weight lifting and the fact that he is a police patrol officer that does at times take patrol he is a candidate for 360 degree fusion with a laminectomy at L4-5 on the left side. We will schedule him for surgery as soon as it is reasonably possible. I will see him 1 week before his surgery. Assessment & Plan Problems 1. HNP (herniated nucleus pulposus), lumbar M51.26 Orders Orders: Lumbar Spine 2 or 3 Views Today M54.5 Coding Level of Care Code Off vis,new,level 3 Diagnoses HNP (herniated nucleus pulposus), lumbar M51.26 Time Spent (min) 30
[2020-05-17] MEDS: Acetaminophen 500 MG Tablet 1000 MG PO (06:35)
[2020-05-17 06:40] LABS: Bedside Glucose 101 mg/dL (70-110)
[2020-05-17] MEDS: Cefazolin 2 GM in 0.9% Normal Saline 100 ML IV (07:50)
[2020-05-17] MEDS: Thrombin 5,000 IU Kit (PSA) 5,000 IU Vial 5000 IU TOPICAL ×3 (08:37→13:09)
[2020-05-17] MEDS: Heparin 10,000 UNITS/10 ML Vial 10000 UNITS (08:38)
--- NOTE | 2020-05-17 09:05 | RAD_ITS ---
STUDY: X-RAY - ABDOMEN/PELVIS REASON FOR EXAM: Male, 49 years old. 360 FUSION L4-5 WITH LAMINECTOMY TECHNIQUE: Single AP intraoperative view of the abdomen / pelvis. COMPARISON: None. FINDINGS: Anterior metallic localization instrument is seen at the anterior L4-L5 level. RAD/Spine 1 View Any Level IMPRESSION: Metallic localization instrument is at the L4-L5 level. Electronically Signed: Long Phelan MD at 11:24 EDT , Service support ,
--- NOTE | 2020-05-17 09:28 | RAD_ITS ---
STUDY: X-RAY - LUMBAR SPINE REASON FOR EXAM: Male, 49 years old. 360 FUSION L4-5, LAMINECTOMY L4-5 TECHNIQUE: Single lateral view(s) of the lumbar spine were obtained. COMPARISON: Comparison is made with prior examination done earlier in the day. FINDINGS: The patient is status post anterior fusion and prosthetic disc placement. RAD/Spine 1 View Any Level IMPRESSION: Status post anterior fusion and prosthetic disc placement. Electronically Signed: Long Phelan MD at 10:56 EDT , Service support ,
--- NOTE | 2020-05-17 10:38 | OP.PCM_ITS ---
Problem List (1) DDD (degenerative disc disease) Status: Acute (2) DDD (degenerative disc disease) Status: Acute Report of Operation Date of Procedure: 05/17/20 Type of Anesthesia:: General Description of Procedure: Dr. Elliott Turner co-surgeon Dr. Vlad Hi Preoperative diagnosis: Degenerative disc disease with ruptured disc and left radicular leg pain Postop diagnosis: The same Anesthesia: General Operation: Anterior lumbar interbody fusion L4-L5, with 14 mm cage, anterior plate with 2 screws in L4 and 2 screws into L5 EBL: 100 cc Complications none Procedure: Patient brought to the operating room. Underwent general anesthesia. Appropriate monitoring lines were placed. Underwent the appropriate timeout consent. Given the appropriate antibiotics. Patient was prepped and draped in a sterile fashion. We did a left lower quadrant incision 4 fingerbreadths above the pubic symphysis. We then dissected down onto the anterior fascia and excised this just medial of midline to the right and then laterally out to the obliques. We then freed up the flap inferior and superior of the anterior rectus sheath. We then got an lateral to the rectus into the retroperitoneal p elvira onto the iliopsoas. We put in an Omni retractor and then using blunt dissection was able to get onto the L4-L5 disc space. O we divided 2 of the iliolumbar veins to allow some inferior retraction of the vein. We then divided a lumbar artery and vein crossing over the L4 disc base. We then got good exposure through this area. We confirmed with x-ray that we are at the L4-L5 disc space. Patient underwent extensive discectomy then. Placed a trial of the 12 mm then a 14 mm that appeared to fit adequately. We then the previous he aspirated bone marrow from the left iliac crest. We then put in the cage that had some matrix with the BMA. This was then placed in with good position and it was a 14 mm cage, 8 degree. We then put a plate on top with 2 screws into L4 and 2 into L5 after using the awl first. There is good hemostasis noted. We put 2 pieces over the cage and then allowed to release of the retractors and maintain good hemostasis. We then did a completion x-ray that showed this was all in good position. Closed the fascia with running strata fix. Isaías's with 2-0 Vicryl and then interrupted 4 oh subdermal Vicryl. 4-0 Monocryl and Dermabond were placed. He was then awakened and posterior will be all done separately. I was co-surgeon for the case with the needing for the exposure and through the discectomy and placement of the cage.
--- NOTE | 2020-05-17 10:40 | RAD_ITS ---
STUDY: X-RAY - LUMBAR SPINE REASON FOR EXAM: Male, 49 years old. 360 FUSION L4-L5, LAMINECTOMY L4-L5 TECHNIQUE: 1 view(s) of the lumbar spine were obtained. COMPARISON: 05/02/2020 FINDINGS: Normal lumbar lordosis. There is no substantial scoliosis. Interval discectomy and anterior fusion at C4/C5 with anatomic alignment. Normal vertebral bodies and endplates. Normal disc space heights. The soft tissue structures are unremarkable. RAD/Spine 1 View Any Level IMPRESSION: Interval discectomy and anterior fusion at C4/C5 with anatomic alignment. Electronically Signed: Rashawn Garsia MD at 16:56 EDT Tel , Service support ,
--- NOTE | 2020-05-17 10:43 | OP.PCM_ITS ---
Report of Operation Date of Procedure: 05/17/20 Description of Surgical Findings:: Preoperative diagnosis: Disc L4-5 with instability and intractable low back pain Postoperative diagnoses: The same Procedure: #1 anterior lumbar interbody fusion L4-5 #2 insertion of cage L4-5 #3 application of spine plate L4-5 Cosurgeons: Dr. Turner and Dr. Hi pediatric dental assistant: Kenny MENDEZ Anesthesia: General endotracheal anesthesia administered by [facility] Estimated blood loss: 200 cc Drains: None Complications: None Procedure: Patient was taken to the OR where he was placed in the supine position on the operating table he was then placed under general endotracheal anesthesia. A Soriano catheter was inserted. Neuro monitoring inserted all their leads. The abdomen was then prepped and draped in standard fashion. The surgical approach is described in Dr. Hi's operative summary. Once he had the L4-5 disc exposed we placed a needle into the disc space to get intraoperative x-ray to assure that we were indeed at the right level. The needle was removed I then remove the anterior annulus with a 10 blade and removed with pituitary rongeurs I then removed more nucleus from within the disc base with pituitary rongeurs and ring curettes and bowl curettes. We were able to do this all the way back to the near the posterior portion of the annulus. Then used the cautery to elevate the periosteum and anterior longitudinal ligament away from the disc space above and below to make room for the plate. I then used a latanya bur to flatten the curved surfaces of L4. This was done on both sides but mostly on the left. Once this was done I was able to put a trial in I started with a 12 trial that ended up with a 14 mm large trial. Was going to be a good fit for him. Note that the endplates had some brisk bleeding after removal removed all the cartilage with curettes. We then used a 14 mm broach to broach the space and further give us good endplate bleeding. That earlier I placed a Jamshidi needle in the left iliac crest obtain 60 cc of BMA. This was handed off to the electronics repair technician it was spun down in a special centrifuge the stem cells and collected and concentrated 8 or 10 times. This was then given back to me I then filled the cage with spongy demineralized bone matrix on both halves of the cage we then soaked in the patient's own concentrated stem cells. I then tamped the cage into place and countersunk it a couple of millimeters. Found to be an excellent fit. We then used a 27mm plate this was made by [employer]. Once this centered we used an awl to punch 2 holes into L4 and 2 holes into L5 1 at a time followed by insertion of 30 mm screws at all 4 points. We then activated the locking mechanisms of the plate. 2 membranes were then placed directly over the plate to put a barrier between the vessels and the plate to prevent adhesions to the vessels over time. Intraoperative x-ray was taken the demonstrated excellent position of the cage the plate and the screws. The closure of the wound is then described in Dr. Hi's operative summary. The end of operative summary on Kendrick Melendez this is Dr. Turner dictating thank you.
--- NOTE | 2020-05-17 13:55 | RAD_ITS ---
STUDY: X-RAY - LUMBAR SPINE REASON FOR EXAM: Male, 49 years old. 360 FUSION L4-5, LANMINECTOMY L4-5 TECHNIQUE: 1 view(s) of the lumbar spine were obtained. COMPARISON: 05/02/2020 FINDINGS: Normal lumbar lordosis. There is no substantial scoliosis. Interval discectomy, anterior fusion, and posterior stabilization with anatomic alignment at L4/L5. Normal vertebral bodies and endplates. Normal disc space heights. The soft tissue structures are unremarkable. RAD/Spine 1 View Any Level IMPRESSION: Interval discectomy and fusion at L4/L5 with anatomic alignment. Electronically Signed: Rashawn Garsia MD at 16:55 EDT Tel , Service support ,
--- NOTE | 2020-05-17 14:23 | PCM.OPRPT ---
Report of Operation Date of Procedure: 05/17/20 Description of Surgical Findings:: Preoperative diagnosis: Herniated disc L4-5 on the left Postoperative diagnosis: Same Procedure: #1 posterior fusion L4-5 #2 lumbar laminectomy L4-5 on the left #3 segmental internal fixation L4-5 Surgeon: Dr. Turner judicial assistant: Kenny MENDEZ Anesthesia: General endotracheal anesthesia administered by [facility] Estimated blood loss: 200 cc Recovered blood loss: 125 cc to the anterior surgery and the posterior surgery Drains: Medium Hemovac Complications: None Procedure: Once the anterior surgery was completely done and the abdomen closed by Dr. Hi we then turned the patient over onto the prone position on the Alireza frame. After appropriate position with care to protect his bony prominences the ulnar nerves of both elbows the genitalia the brachial plexus and the facial features the back was prepped and draped in standard fashion. I then made a longitudinal incision centered over L4 5 subcutaneous tissues were incised length of the skin incision. First open the lumbar fascia using cautery to the left of the spinous processes elevating the paravertebral muscles off the lamina of L4 and the lamina of L5. An intraoperative x-ray was taken with a marker in place the demonstrated that we were indeed at L4-5. Nesha retractor was then put in place. I then released the ligamentum flavum off the underside of the lamina of L4 with sharp angled curettes. I thinned down the lamina on the left side with double-action rongeurs. The laminectomy was then carried out with 45 degree Kerrison rongeurs of the ligamentum flavum in retrograde fashion with a 45 degree Kerrison rongeurs first releasing them off the top of the L5 lamina and also off of the superior facet of L5. My basically remove the entire ligamentum flavum I then retracted the nerve root and dura medialward exposing the protruded disc note that this disc when I cut into it was at the level of the disc space. I was able to see the back of the cage that we inserted earlier at this L4-5 level. Knowing that the free fragments went behind the vertebral body of L5 and had moved down a significant distance this required laminectomy of the top of the L5 vertebra also I carried out this laminectomy with 45 degree Kerrison rongeurs then retracted the midline structures and identified a large free fragment of disc. This was removed as was a couple of more smaller fragments. This completely decompressed the L5 nerve root. Noted with some brisk epidural bleeding these were controlled with bipolar cautery and thrombin-soaked Gelfoam. Note that we also washed out frequently with irrigation to prevent infection. Once this was done we then opened the right side by elevating the paravertebral muscles off the lamina for and the lamina of L5. We then put the super slide retractors in place giving us good exposure of the bilateral laminas at both levels. We then put the bone spacer in place. Removed the interspinous ligament between the spinous process of L4 and these process of L5 was were taken for the spacer we used a bone spacer 14 mm high. First I used the latanya bur to bur the lamina of 4 and 5 particularly on the right side which was not opened. This was also done on the left side. Note that we then put in M amnionic membrane directly over the laminotomy site to prevent scar formation Gelfoam was placed over that I then used my demineralized bone matrix strips that were soaked in the patient's stem cells on either side followed by the insertion of the bony spacer that was tamped into place between the spinous processes of 4 and 5. The internal fixation device was then applied to the entire construct once applied and locked in place the active the locking mechanisms were activated. This was seen on a lateral x-ray was found to be quite satisfactory. Placed a medium Hemovac drain in place and began closure of close lumbar fascia using [id number] suture with #1 Vicryl for closure of the subcutaneous tissues with 2-0 Vicryl in interrupted fashion and skin was approximated using skin clips. I note that we did tie the drain down to prevent it getting pulled out and sterile dressings were applied the patient was then recovered in the OR moved to his hospital bed and taken to recovery in satisfactory condition this interoperative summary on Kendrick Melendez. This is Dr. Turner dictating.
--- NOTE | 2020-05-17 15:09 | SUR.PHASEI ---
Facial skin tears noted on bilateral cheeks upon arrival to PACU. MAKENNA. No drainage.
--- NOTE | 2020-05-17 16:15 | SUR.PHASEI ---
Patient reports numbness in left foot at baseline. This numbness is still present in PACU. Patient is able to move feet bilateral and reports sensation.
[2020-05-17] MEDS: Cefazolin 1 GM/50 ML BAG IV ×2 (16:32→23:47)
[2020-05-17] MEDS: Morphine 2 MG/ML Syringe IV ×2 (16:55→18:24)
[2020-05-17] MEDS: 0.9% NaCl Peripheral Flush Adult/Peds IV ×2 (18:24→22:30)
--- NOTE | 2020-05-17 18:46 | PCM.PN.HOSP ---
<Henrry Gómez - Last Filed: 05/17/20 18:46> Patient Problems: Active and Suspected Problems (Last Reviewed 07/28/17 @ 13:08 by Milady Douglas) DDD (degenerative disc disease) (Acute) DDD (degenerative disc disease) (Acute) Reason for Visit: S/P fusion with laminectomy at L4-L5 Subjective: Patient is a 49-year-old male who comes in status post fusion with laminectomy at L4-L5. Patient appears to be resting in bed. Patient appears comfortable however any movement is painful due to patient stiffness. 1 month ago patient was playing with his son and felt a pop in his back. Patient proceeded to go to the emergency department due to his severe pain, urinary retention, radicular symptoms down the left leg and weakness of the left foot. Pain was unresponsive to Medrol Dosepak. MRI scan revealed a sequestrated fragment at L4-L5 that has gone down behind the L5 vertebral body blocking about 50% of the spinal canal. Orthopedics then determined that the patient was a candidate for surgery. Objective: Clinical Impression(s) from Imaging Studies Spine X-Ray 05/17/20 09:28 IMPRESSION: Status post anterior fusion and prosthetic disc placement. Electronically Signed: Long Phelan MD at 10:56 EDT , Service support , Vitals/I&O's: Vital Signs Temp Pulse Resp BP Pulse Ox 99.7 F H 96 16 100/59 L 94 05/17/20 17:59 05/17/20 17:59 05/17/20 17:59 05/17/20 17:59 05/17/20 17:59 Oxygen Flow Rate (L/min) 6 Oxygen Delivery Method Room Air Weight: 149 lb 14.629 oz Body Mass Index (BMI) 22.1 Intake and Output for Last 24 Hours 05/15/20 05/16/20 05/17/20 23:59 23:59 23:59 Intake Total 3264 / 3264 Output Total 740 / 740 Balance 2524 / 2524 General: Alert, Oriented x3, Cooperative HEENT: Atraumatic, PERRLA, EOMI, Normocephalic Neck: Supple, No JVD, Negative Carotid Bruits Lungs: Clear to auscultation, Normal air movement Cardiovascular: Regular rate, No murmurs Abdomen: Bowel Sounds Present, Soft, Non Tender Extremities: No edema, Capillary Refill Less than 3 Seconds Skin: No rashes, No breakdown Musculoskeletal: No Tenderness to Palpation of Joints or Extremities Neurological: Cranial nerves II-XII grossly intact Psych/Mental Status: Normal Affect, Appropriate Microbiology Past 72 Hours 05/16/20 09:35 Interface Orders SARS-CoV-2 Antigen (Rapid) - Final Laboratory Results 05/17/20 06:33: POC Glucose 101 Current Medications Diazepam (Diazepam 5 Mg Tablet) 10 mg PO Q6H PRN PRN PRN Reason: Muscle Spasms Famotidine (Famotidine 20 Mg Tablet) 20 mg PO BID COUNTS INCLUDE 234 BEDS AT THE [facility] Lactated Ringer's () 1,000 mls @ 100 mls/hr IV .Q10H COUNTS INCLUDE 234 BEDS AT THE [facility] Last Admin: 05/17/20 05:50 Dose: 100 mls/hr Documented by: Cefazolin Sodium () 1 gm in 50 mls @ 100 mls/hr IV Q8H COUNTS INCLUDE 234 BEDS AT THE [facility] Last Infusion: 05/17/20 17:15 Dose: Infused Documented by: Sodium Chloride () 250 mls @ 15 mls/hr IV .[id number] PRN PRN Reason: Saline Flush Sodium Chloride () 250 mls @ 15 mls/hr IV .[id number] PRN PRN Reason: Additional IVPB Infusion Morphine Sulfate (Morphine 4 Mg/Ml Syringe) 2 - 4 mg IV Q2H PRN PRN PRN Reason: Pain Score 6-10 Morphine Sulfate (Morphine 2 Mg/Ml Syringe) 2 - 4 mg IV Q2H PRN PRN PRN Reason: Pain Score 6-10 Last Admin: 05/17/20 18:24 Dose: 2 mg Documented by: Nutritional Formula (Lactose Free) (Ensure Clear 120 Ml Liquid) 120 ml PO TIDCM COUNTS INCLUDE 234 BEDS AT THE [facility] Ondansetron HCl (Ondansetron 4 Mg/2 Ml Vial) 4 mg IV Q8H PRN PRN PRN Reason: NAUSEA Senna/Docusate Sodium (Senna/Docusate Sodium 1 Tablet) 2 tablet PO BID COUNTS INCLUDE 234 BEDS AT THE [facility] Sodium Chloride (0.9% Nacl Peripheral Flush Adult/Peds) 5 - 15 ml IV UD PRN PRN Reason: SALINE FLUSH Last Admin: 05/17/20 18:24 Dose: 10 ml Documented by: Sodium Chloride (0.9% Saline Lock 10 Ml Syringe) 10 - 40 ml IV UD PRN PRN Reason: SALINE FLUSH Tramadol HCl (Tramadol 50 Mg Tablet) 50 - 100 mg PO Q6H PRN PRN PRN Reason: Pain Score 4-5 Zolpidem Tartrate (Zolpidem Tartrate 5 Mg Tablet) 5 mg PO QHS PRN PRN PRN Reason: INSOMNIA STROKE Vital Signs/Narrative: Vital Signs Temp Pulse Resp BP Pulse Ox 05/17/20 17:59 99.7 F H 96 16 100/59 L 94 05/17/20 16:41 99.0 F 106 H 16 99/58 L 98 05/17/20 16:35 100 05/17/20 16:00 98.6 F 107 H 16 106/67 99 05/17/20 15:45 91 16 103/62 99 05/17/20 15:30 90 16 108/64 100 05/17/20 15:15 92 16 109/69 100 05/17/20 15:00 106 H 16 114/67 99 Medical Necessity - Tobacco Use Smoking Status: Current some day smoker Tobacco Use: Chew Assessment/Plan All Active Problems (Last Reviewed 07/28/17 @ 13:08 by Milady Douglas) DDD (degenerative disc disease) (Acute) DDD (degenerative disc disease) (Acute) Bilateral inguinal hernia, without obstruction or gangrene, not specified as recurrent (Acute) Mr. Melendez is a 49-year-old male who is referred to our service status post fusion laminectomy. Patient's past medical history includes herniated nucleus pulposus and depression. Family medical history is significant for maternal breast cancer. CBCs, BMP unremarkable. POC glucose 101. Rapid Covid negative, nasal screen for MRSA/MSSA negative. 1) S/P fusion laminectomy at L4/L5 for L4/L5 instability with intractable back pain Assessment - Patient is comfortable resting in bed, any movement is painful to the patient due to stiffness - No complications per operative note - Spinal x-rays indicate successful fusion - EKG normal sinus rhythm Plan -Continue to monitor patient's condition -Discharge pending orthopedics -Pain managed on morphine -Muscle spasms managed on diazepam 2) Depression Assessment - Managed outpatient on bupropion Plan -Hold bupropion DVT prophylaxis -SCDs Patient seen by Henrry Gómez PA-C, under the supervision of Dr. Milton <Simona Milton - Last Filed: 05/17/20 19:20> Vitals/I&O's: Vital Signs Temp Pulse Resp BP Pulse Ox 99.7 F H 96 16 100/59 L 94 05/17/20 17:59 05/17/20 17:59 05/17/20 17:59 05/17/20 17:59 05/17/20 17:59 Oxygen Flow Rate (L/min) 6 Oxygen Delivery Method Room Air Weight: 68 kg Body Mass Index (BMI) 22.1 Intake and Output for Last 24 Hours 05/15/20 05/16/20 05/17/20 23:59 23:59 23:59 Intake Total 3264 / 3264 Output Total 740 / 740 Balance 2524 / 2524 Microbiology Past 72 Hours 05/16/20 09:35 Interface Orders SARS-CoV-2 Antigen (Rapid) - Final Laboratory Results 05/17/20 06:33: POC Glucose 101 Current Medications Diazepam (Diazepam 5 Mg Tablet) 10 mg PO Q6H PRN PRN PRN Reason: Muscle Spasms Famotidine (Famotidine 20 Mg Tablet) 20 mg PO BID COUNTS INCLUDE 234 BEDS AT THE [facility] Lactated Ringer's () 1,000 mls @ 100 mls/hr IV .Q10H COUNTS INCLUDE 234 BEDS AT THE [facility] Last Admin: 05/17/20 05:50 Dose: 100 mls/hr Documented by: Cefazolin Sodium () 1 gm in 50 mls @ 100 mls/hr IV Q8H COUNTS INCLUDE 234 BEDS AT THE [facility] Last Infusion: 05/17/20 17:15 Dose: Infused Documented by: Sodium Chloride () 250 mls @ 15 mls/hr IV .[id number] PRN PRN Reason: Saline Flush Sodium Chloride () 250 mls @ 15 mls/hr IV .[id number] PRN PRN Reason: Additional IVPB Infusion Morphine Sulfate (Morphine 4 Mg/Ml Syringe) 2 - 4 mg IV Q2H PRN PRN PRN Reason: Pain Score 6-10 Morphine Sulfate (Morphine 2 Mg/Ml Syringe) 2 - 4 mg IV Q2H PRN PRN PRN Reason: Pain Score 6-10 Last Admin: 05/17/20 18:24 Dose: 2 mg Documented by: Nutritional Formula (Lactose Free) (Ensure Clear 120 Ml Liquid) 120 ml PO TIDCM [facility] Ondansetron HCl (Ondansetron 4 Mg/2 Ml Vial) 4 mg IV Q8H PRN PRN PRN Reason: NAUSEA Senna/Docusate Sodium (Senna/Docusate Sodium 1 Tablet) 2 tablet PO BID [facility] Sodium Chloride (0.9% Nacl Peripheral Flush Adult/Peds) 5 - 15 ml IV UD PRN PRN Reason: SALINE FLUSH Last Admin: 05/17/20 18:24 Dose: 10 ml Documented by: Sodium Chloride (0.9% Saline Lock 10 Ml Syringe) 10 - 40 ml IV UD PRN PRN Reason: SALINE FLUSH Tramadol HCl (Tramadol 50 Mg Tablet) 50 - 100 mg PO Q6H PRN PRN PRN Reason: Pain Score 4-5 Zolpidem Tartrate (Zolpidem Tartrate 5 Mg Tablet) 5 mg PO QHS PRN PRN PRN Reason: INSOMNIA STROKE Vital Signs/Narrative: Vital Signs Temp Pulse Resp BP Pulse Ox 05/17/20 17:59 99.7 F H 96 16 100/59 L 94 05/17/20 16:41 99.0 F 106 H 16 99/58 L 98 05/17/20 16:35 100 05/17/20 16:00 98.6 F 107 H 16 106/67 99 05/17/20 15:45 91 16 103/62 99 05/17/20 15:30 90 16 108/64 100 05/17/20 15:15 92 16 109/69 100 Assessment/Plan This patient was seen in conjunction with VANESSA Washington. I have independently interviewed and examined the patient and reviewed pertinent historical, laboratory, and other data. Please refer to VANESSA Washington's note for his patient's presentation, findings, and recommendations. I have reviewed and his note and concur with his documentation 49-year-old male with past medical history of depression who comes in for elective 360 degree spinal surgery. Patient's history weeks ago while playing in the snow with his son. He bent down to pick a snowball and had immediate severe back pain. MRI of the lumbar spine showed an L4-5 sequestrated fragment that was causing disc extrusion with disc extrusion causing displacement of the left L5 nerve root, with moderate to pronounced central canal stenosis compatible with impending cauda equina syndrome. He was seen in the immediate post-op period. His pain was fairly controlled, 4 out of 10. Physical Exam: Gen: Looks in some discomfort, not pale, not jaundiced, tenderness to his face CVS:HS I +II, regular, no murmurs RESP: CTA GI: BS present and normal, soft, nontender, no palpable organs EXT:No edema Spine: Dressing intact, drain has bloody discharge ASSESSMENT: 1. POD #0, s/p 360 degree spinal fusion, L4-L5 laminectomy 2. Leucocytosis, reactive 3. Depression Plan: Continue on Tylenol, tramadol and morphine prn Continue on wound and PT/OT recommendations per primary service Inpatient E&M: 62207 Init Hosp L2
[2020-05-17] MEDS: Morphine 4 MG/ML Syringe IV ×2 (20:25→22:29)
[2020-05-17] MEDS: Famotidine 20 MG Tablet PO (21:13)
[2020-05-17] MEDS: Senna/Docusate Sodium 1 Tablet 2 TABLET PO (21:13)
[2020-05-17] MEDS: diazePAM 5 MG Tablet 10 MG PO (21:13)
[2020-05-18] VITALS (8 sets, daily range): BP systolic 104–129; BP diastolic 62–74; PULSE 75–115; RESP 14–20; TEMP 36.7–37.8; O2SAT 93–98
[2020-05-18] MEDS: Morphine 4 MG/ML Syringe IV ×10 (00:27→23:26)
[2020-05-18] MEDS: Acetaminophen 500 MG Tablet 1000 MG PO (00:30)
[2020-05-18] MEDS: traMADol 50 MG Tablet PO ×2 (01:53→10:01)
[2020-05-18] MEDS: Lactated Ringers 1,000 ML 100 ML IV ×2 (08:14→18:27)
[2020-05-18] MEDS: Senna/Docusate Sodium 1 Tablet 2 TABLET PO ×2 (08:17→21:15)
[2020-05-18] MEDS: Famotidine 20 MG Tablet PO ×2 (08:17→21:15)
[2020-05-18] MEDS: Ensure Clear 120 ML Liquid PO ×3 (08:17→16:04)
[2020-05-18] MEDS: diazePAM 5 MG Tablet 10 MG PO ×2 (08:17→16:04)
--- NOTE | 2020-05-18 09:15 | PCM.PROGNOTE ---
Patient Problems: Active and Suspected Problems (Last Reviewed 07/28/17 @ 13:08 by Milady Douglas) DDD (degenerative disc disease) (Acute) Subjective: Chief complaint: Follow-up after consultation for postoperative medical management. Patient seen and examined. No acute events overnight. This morning, he complains of back pain. He just received pain medicine. No other complaints. His vitals are stable. - Physical Exam Vitals/I&O's: Vital Signs Temp Pulse Resp BP Pulse Ox 98.2 F 93 18 109/70 95 05/18/20 07:24 05/18/20 07:29 05/18/20 07:29 05/18/20 07:24 05/18/20 07:29 Oxygen Flow Rate (L/min) 6 Oxygen Delivery Method Room Air Weight: 149 lb 14.629 oz Body Mass Index (BMI) 22.1 Intake and Output for Last 24 Hours 05/16/20 05/17/20 05/18/20 23:59 23:59 23:59 Intake Total 4582.33 / 4582.33 1145 / 1145 Output Total 1490 / 1490 400 / 400 Balance 3092.33 / 3092.33 745 / 745 General: Alert, Oriented x3, Cooperative, - - He is in mild to moderate pain. HEENT: Atraumatic, PERRLA, EOMI, Normocephalic Oral: Moist Mucosa, No Gingival or Mucosal Lesions/ Ulcerations Neck: Supple, No JVD, Negative Carotid Bruits, Trachea Midline, Thyroid Normal Size and Texture Lungs: Clear to auscultation, Normal air movement, No rhonchi, No wheeze, No rales Cardiovascular: Regular rate, Regular Rhythm, Normal S1, Normal S2, PMI Normal Abdomen: Bowel Sounds Present, Soft, Non Tender, Non-Distended, No Hepato-splenomegaly Extremities: No clubbing, No cyanosis, No edema Skin: No rashes, No breakdown Lymphatic: No Cervical, Supraclavicular, or Inguinal Adenopathy Neurological: Cranial nerves II-XII grossly intact, Neuro grossly intact Psych/Mental Status: Normal Affect, Appropriate Microbiology Past 72 Hours 05/16/20 09:35 Interface Orders SARS-CoV-2 Antigen (Rapid) - Final Current Medications Acetaminophen (Acetaminophen 500 Mg Tablet) 1,000 mg PO Q8H PRN PRN PRN Reason: Pain Score 1-10 Last Admin: 05/18/20 00:30 Dose: 1,000 mg Documented by: Diazepam (Diazepam 5 Mg Tablet) 10 mg PO Q6H PRN PRN PRN Reason: Muscle Spasms Last Admin: 05/18/20 08:17 Dose: 10 mg Documented by: Famotidine (Famotidine 20 Mg Tablet) 20 mg PO BID [facility] Last Admin: 05/18/20 08:17 Dose: 20 mg Documented by: Lactated Ringer's () 1,000 mls @ 100 mls/hr IV .Q10H [facility] Last Admin: 05/18/20 08:14 Dose: 100 mls/hr Documented by: Sodium Chloride () 250 mls @ 15 mls/hr IV .[id number] PRN PRN Reason: Saline Flush Sodium Chloride () 250 mls @ 15 mls/hr IV .[id number] PRN PRN Reason: Additional IVPB Infusion Morphine Sulfate (Morphine 4 Mg/Ml Syringe) 2 - 4 mg IV Q2H PRN PRN PRN Reason: Pain Score 6-10 Last Admin: 05/18/20 08:17 Dose: 4 mg Documented by: Morphine Sulfate (Morphine 2 Mg/Ml Syringe) 2 - 4 mg IV Q2H PRN PRN PRN Reason: Pain Score 6-10 Last Admin: 05/17/20 18:24 Dose: 2 mg Documented by: Nutritional Formula (Lactose Free) (Ensure Clear 120 Ml Liquid) 120 ml PO TIDCM [facility] Last Admin: 05/18/20 08:17 Dose: 120 ml Documented by: Ondansetron HCl (Ondansetron 4 Mg/2 Ml Vial) 4 mg IV Q8H PRN PRN PRN Reason: NAUSEA Senna/Docusate Sodium (Senna/Docusate Sodium 1 Tablet) 2 tablet PO BID [facility] Last Admin: 05/18/20 08:17 Dose: 2 tablet Documented by: Sodium Chloride (0.9% Nacl Peripheral Flush Adult/Peds) 5 - 15 ml IV UD PRN PRN Reason: SALINE FLUSH Last Admin: 05/17/20 22:30 Dose: 10 ml Documented by: Sodium Chloride (0.9% Saline Lock 10 Ml Syringe) 10 - 40 ml IV UD PRN PRN Reason: SALINE FLUSH Tramadol HCl (Tramadol 50 Mg Tablet) 50 - 100 mg PO Q6H PRN PRN PRN Reason: Pain Score 4-5 Last Admin: 05/18/20 01:53 Dose: 50 mg Documented by: Zolpidem Tartrate (Zolpidem Tartrate 5 Mg Tablet) 5 mg PO QHS PRN PRN PRN Reason: INSOMNIA Medical Necessity - Tobacco Use Smoking Status: Current some day smoker Tobacco Use: Chew Assessment/Plan All Active Problems (Last Reviewed 07/28/17 @ 13:08 by Milady Douglas) DDD (degenerative disc disease) (Acute) This is a 49 years old male patient underwent elective L4-L5 anterior lumbar interbody fusion, L4-L5 insertion of cage and application of spine plate for L4-L5 disc herniation with instability and intractable low back pain. #1 status post anterior lumbar interbody fusion of L4-L5/insertion of cage at L4-L5 with application of spine plate: This was done for L4-L5 degenerative disc disease with instability and intractable low back pain. Postoperative day 1. Patient is currently complaining of back pain he just received pain medicine. He is on IV morphine as needed for pain as well as tramadol as needed. His preoperative routine blood work was remarkable for minimal leukocytosis which is reactive, otherwise unremarkable. His vitals are stable. Spine surgery on the case. From medical standpoint, patient is stable, no acute issues. I will sign off, call if needed. #2 depression: Continue Wellbutrin. #3 DVT prophylaxis: SCDs. This note was generated with [employer] dictation software. It may contain incorrect words, spelling, and punctuation that were not noted in checking the note before signing. Inpatient E&M: 66864 Subs Hosp L2
[2020-05-18] MEDS: buPROPion (XL) 150 MG TABLET.XL 450 MG PO (10:01)
--- NOTE | 2020-05-18 11:02 | CASEMGMT ---
RN CM Assessment Note Introduced role of CM to patient and his in the room. Patient is in chair, painful, but alert and wishes to continue with assessment. States he has had pain medication. Demographics and PCP verified. Patient is ambulating in the halls with a walker. Diagnosis: Laminectomy and fusion L4-5 PCP: Dr. Jacob Curry Specialist: Dr. Elliott Turner Pharmacy: [facility]: Living arrangements: Lives in one story home with one step into home. Patient was moderately independent prior to admission. is able to assist with care needs at home. DME: none. Will need walker. DME providers [employer] with [employer] insurance reviewed and list provided for patient in geographic area. Patient prefers [facility]. HHC: none Transportation: patient did drive, but can drive on dc. Pt dc goals: home on discharge DC PLAN: home on discharge, will need walker. Physical therapy eval completed and no further therapy recommended on dc. Yandel NOVA RN ACM
--- NOTE | 2020-05-18 13:25 | PN_ITS ---
Progress Note Postop day #1: Spencer is doing reasonably well today his left leg pain is just about all gone. Numbness left. Considering the amount of surgery that he had his back does not feel all that bad. Been able to walk all around this floor. Dressings are both dry did have some significant amount of drainage overnight into the Hemovac so we will keep it 1 more day. Change the dressing and removing it tomorrow. Logically is intact in both lower extremities. She had just a little bit of flatulence. Progress is satisfactory. We will continue th e clear liquid diet. STROKE Vital Signs/Narrative: Vital Signs Temp Pulse Resp BP Pulse Ox 05/18/20 11:34 98.6 F 101 H 14 110/74 96
[2020-05-19] VITALS (7 sets, daily range): BP systolic 91–133; BP diastolic 51–80; PULSE 90–108; RESP 16–18; TEMP 36.8–37.1; O2SAT 94–95
[2020-05-19] MEDS: diazePAM 5 MG Tablet 10 MG PO (01:48)
[2020-05-19] MEDS: Morphine 4 MG/ML Syringe IV ×3 (01:48→14:14)
[2020-05-19] MEDS: Acetaminophen 500 MG Tablet 1000 MG PO ×2 (01:49→14:05)
[2020-05-19] MEDS: Lactated Ringers 1,000 ML 100 ML IV ×2 (04:19→14:19)
[2020-05-19] MEDS: 0.9% NaCl Peripheral Flush Adult/Peds IV ×3 (09:07→14:14)
[2020-05-19] MEDS: Morphine 2 MG/ML Syringe IV (09:08)
[2020-05-19] MEDS: buPROPion (XL) 150 MG TABLET.XL 450 MG PO (09:11)
[2020-05-19] MEDS: Famotidine 20 MG Tablet PO ×2 (09:11→21:21)
[2020-05-19] MEDS: Senna/Docusate Sodium 1 Tablet 2 TABLET PO ×2 (09:11→21:21)
[2020-05-19] MEDS: Ensure Clear 120 ML Liquid PO ×3 (09:11→18:29)
--- NOTE | 2020-05-19 12:39 | RAD_ITS ---
INDICATION: urinary retention -- and quot;lateral lumbar spine and quot;, portable, post op x one day, extreme pain EXAMINATION/TECHNIQUE: X-RAY - XR Spine Lumbar 1 View COMPARISON: 05/18/2019 FINDINGS: VERTEBRAE: Preserved vertebral body height. No fracture. No spondylolisthesis. Preservation of the normal lumbar lordosis. No significant facet arthropathy. DISCS: Anterior and posterior surgical hardware at L4-L5. INCLUDED ABDOMEN: Included bowel gas pattern is non-obstructive. Surgical clips project anterior to the lumbosacral spine. RAD/Spine 1 View Any Level IMPRESSION: Operative changes at L4-L5. Stable. Electronically Signed: Gregg Hallman MD (Bro[place]) at 14:20 EDT , Service support ,
--- NOTE | 2020-05-19 12:55 | NURSING ---
SPOKE WITH DR GREENBERG REGARDING PT'S URINARY FREQUENCY/RETENTION. BLADDER SCAN FOR 440ML. MS ALSO MADE AWARE OF PT STILL HAVING ALOT OF PAIN IN ABD & BACK REQUIRING IV MORPHINE. NEW ORDERS RECEIVED.
--- NOTE | 2020-05-19 13:17 | NURSING ---
attempted to call in urology consult as ordered by Dr Turner, was told Dr Wright is not taking consults this month - will notify Dr Turner of same
--- NOTE | 2020-05-19 14:12 | PCM.PN.BLA ---
Progress Note Postop day #2: Patient is complaining of more back pain today than he did yesterday. After the catheter was removed he was unable to urinate last night he was straight cathed a couple or 3 times. Patient he now has significant swelling of his penis and the scrotal sac. I took a picture of it with my phone and sent to Dr. Hi and then discussed it with Dr. Hi by phone. He stated that he is got some fluid down in the inguinal canal but that is not terribly unusual but we should probably cover him with antibiotics just in case there is infection though he doubts it. We started him back on cefazolin 1 g every 8 hours IV. In addition we are increasing his pain meds to include oxycodone to get some relief of his back pain. He has kind of overdone it perhaps on his walking I asked him to stay down the rest of today. See how he feels tomorrow. Probably discuss the penile swelling and scrotal swelling also with the hospitalist. Leg pain of course is still all gone. Did change his dressing and removed the posterior drain incision is healing well. STROKE Vital Signs/Narrative: Vital Signs Temp Pulse Resp BP Pulse Ox 05/19/20 10:39 98.2 F 91 18 91/51 L 95
[2020-05-19 15:03] LABS: Absolute Lymphocyte Count 1.35 X10^3/uL (0.83-4.51); Absolute Neutrophil Count 9.5 X10^3/uL (2.0-7.7); Basophil# 0.04 X10^3/uL; Basophil% 0.3 % (0-1); Eosinophil# 0.14 X10^3/uL; Eosinophils% 1.1 % (0-5); Hematocrit 32.2 % (40-54); Hemoglobin 11.1 g/dL (13.0-16.5); Lymphocyte # 1.35 X10^3/ul (4.0); Mean Corp Hgb Conc 34.5 g/dL (32-36); Mean Corpuscular Hgb 32.3 pg (27.0-32.0); Mean Corpuscular Volume 93.6 fL (80-94); Mean Platelet Vol. 9.1 fl (6.2-12.0); Monocyte# 1.26 X10^3/uL; Monocyte% 10.2 % (0-10); NRBC Flagged by Analyzer 0 % (0-5); Neutrophil # 9.46 X10^3/uL (2.7-7.7); Neutrophil % 76.9 % (47-70); Platelet Count 152 K/mm3 (150-450); RBC Distribution Width CV 11.7 % (11.6-14.6); RBC Distribution Width SD 39.6 fl (35.1-43.9); Red Blood Count 3.44 M/mm3 (4.6-6.2); White Blood Count 12.3 K/mm3 (4.4-11.0)
--- NOTE | 2020-05-19 15:23 | PN_ITS ---
Patient Problems: Active and Suspected Problems (Last Reviewed 07/28/17 @ 13:08 by Milady Douglas) DDD (degenerative disc disease) (Acute) Subjective: Chief complaint: Follow-up after consultation for postoperative medical management, I was called to evaluate for swelling and erythema of the penis and scrotum as well as the pubic area. Patient seen and examined. No acute events overnight. He has been having urinary tension, now on Soriano catheter. He complains of lower abdominal pain. Denies fever or chills. He is still complaining of back pain. He is afebrile, heart rate stable, blood pressure stable, pulse ox is 95% on room air. - Physical Exam Vitals/I&O's: Vital Signs Temp Pulse Resp BP Pulse Ox 98.2 F 91 18 91/51 L 95 05/19/20 10:39 05/19/20 10:39 05/19/20 10:39 05/19/20 10:39 05/19/20 10:39 Oxygen Flow Rate (L/min) 6 Oxygen Delivery Method Room Air Weight: 149 lb 14.629 oz Body Mass Index (BMI) 22.1 Intake and Output for Last 24 Hours 05/17/20 05/18/20 05/19/20 23:59 23:59 23:59 Intake Total 4582.33 / 4582.33 3285 / 3285 2656.67 / 2656.67 Output Total 1490 / 1490 1890 / 1890 300 / 300 Balance 3092.33 / 3092.33 1395 / 1395 2356.67 / 2356.67 General: Alert, Oriented x3, Cooperative, No apparent distress HEENT: Atraumatic, PERRLA, EOMI, Normocephalic Oral: Moist Mucosa, No Gingival or Mucosal Lesions/ Ulcerations Neck: Supple, No JVD, Negative Carotid Bruits, Trachea Midline, Thyroid Normal Size and Texture Lungs: Clear to auscultation, No rhonchi, No wheeze, No rales, Diminished Cardiovascular: Regular rate, Regular Rhythm, Normal S1, Normal S2, PMI Normal Abdomen: Bowel Sounds Present, Soft, Non-Distended, No Hepato-splenomegaly, Tender - Minimal lower tenderness, no guarding or rigidity. Extremities: No clubbing, No cyanosis, No edema Skin: - - Genital area: Moderate diffuse erythema and swelling of the penis, minimal erythema of the scrotal sac, no tenderness. Minimal swelling at the lower pubic region. Lymphatic: No Cervical, Supraclavicular, or Inguinal Adenopathy Neurological: Cranial nerves II-XII grossly intact, Motor Exam 5/5 strength throughout Psych/Mental Status: Normal Affect, Appropriate, Alert and oriented to time, place, person, mood and affect Microbiology Past 72 Hours 05/16/20 09:35 Interface Orders SARS-CoV-2 Antigen (Rapid) - Final Laboratory Results 05/19/20 14:54: WBC 12.3 H, RBC 3.44 L, Hgb 11.1 L, Hct 32.2 L, MCV 93.6, MCH 32.3 H, MCHC 34.5, RDW Std Deviation 39.6, RDW Coeff of Gabriella 11.7, Plt Count 152, MPV 9.1, Immature Gran % (Auto) 0.500, Neut % (Auto) 76.9 H, Lymph % (Auto) 11.0 L, [place] % (Auto) 10.2 H, Eos % (Auto) 1.1, Baso % (Auto) 0.3, Absolute Neuts (auto) 9.5 H, Absolute Lymphs (auto) 1.35, Nucleated RBC % 0 Current Medications Acetaminophen (Acetaminophen 500 Mg Tablet) 1,000 mg PO Q8H PRN PRN PRN Reason: Pain Score 1-10 Last Admin: 05/19/20 14:05 Dose: 1,000 mg Documented by: Bupropion HCl (Bupropion (Xl) 150 Mg Tablet.Xl) 450 mg PO DAILY [facility] Last Admin: 05/19/20 09:11 Dose: 450 mg Documented by: Diazepam (Diazepam 5 Mg Tablet) 10 mg PO Q6H PRN PRN PRN Reason: Muscle Spasms Last Admin: 05/19/20 01:48 Dose: 10 mg Documented by: Famotidine (Famotidine 20 Mg Tablet) 20 mg PO BID [facility] Last Admin: 05/19/20 09:11 Dose: 20 mg Documented by: Lactated Ringer's () 1,000 mls @ 100 mls/hr IV .Q10H [facility] Last Admin: 05/19/20 14:19 Dose: 100 mls/hr Documented by: Sodium Chloride () 250 mls @ 15 mls/hr IV .[id number] PRN PRN Reason: Saline Flush Sodium Chloride () 250 mls @ 15 mls/hr IV .[id number] PRN PRN Reason: Additional IVPB Infusion Cefazolin Sodium () 1 gm in 50 mls @ 100 mls/hr IV Q8 [facility] Morphine Sulfate (Morphine 4 Mg/Ml Syringe) 2 - 4 mg IV Q2H PRN PRN PRN Reason: Pain Score 6-10 Last Admin: 05/19/20 14:14 Dose: 4 mg Documented by: Morphine Sulfate (Morphine 2 Mg/Ml Syringe) 2 - 4 mg IV Q2H PRN PRN PRN Reason: Pain Score 6-10 Last Admin: 05/19/20 09:08 Dose: 2 mg Documented by: Nutritional Formula (Lactose Free) (Ensure Clear 120 Ml Liquid) 120 ml PO TIDCM [facility] Last Admin: 05/19/20 11:52 Dose: 120 ml Documented by: Ondansetron HCl (Ondansetron 4 Mg/2 Ml Vial) 4 mg IV Q8H PRN PRN PRN Reason: NAUSEA Oxycodone HCl (Oxycodone 5 Mg Tablet) 5 - 10 mg PO Q6H PRN PRN PRN Reason: Pain Score 4-10 Senna/Docusate Sodium (Senna/Docusate Sodium 1 Tablet) 2 tablet PO BID [facility] Last Admin: 05/19/20 09:11 Dose: 2 tablet Documented by: Sodium Chloride (0.9% Nacl Peripheral Flush Adult/Peds) 5 - 15 ml IV UD PRN PRN Reason: SALINE FLUSH Last Admin: 05/19/20 14:14 Dose: 10 ml Documented by: Sodium Chloride (0.9% Saline Lock 10 Ml Syringe) 10 - 40 ml IV UD PRN PRN Reason: SALINE FLUSH Tramadol HCl (Tramadol 50 Mg Tablet) 50 - 100 mg PO Q6H PRN PRN PRN Reason: Pain Score 4-5 Last Admin: 05/18/20 10:01 Dose: 100 mg Documented by: Zolpidem Tartrate (Zolpidem Tartrate 5 Mg Tablet) 5 mg PO QHS PRN PRN PRN Reason: INSOMNIA Medical Necessity - Tobacco Use Smoking Status: Current some day smoker Tobacco Use: Chew Assessment/Plan All Active Problems (Last Reviewed 07/28/17 @ 13:08 by Milady Douglas) DDD (degenerative disc disease) (Acute) This is a 49 years old male patient underwent elective L4-L5 anterior lumbar interbody fusion, L4-L5 insertion of cage and application of spine plate for L4- L5 disc herniation with instability and intractable low back pain. #1 status post anterior lumbar interbody fusion of L4-L5/insertion of cage at L4-L5 with application of spine plate: This was done for L4-L5 degenerative disc disease with instability and intractable low back pain. Postoperative day 2. Patient still complaining of back pain. Patient is currently complaining of back pain. He is on IV morphine and OxyIR as needed for pain as well as tramadol. Spine surgery on the case. #2 urinary retention: Secondary to swelling of the penis which is probably due fluid from the abdomen that came down through the inguinal canal. He is on Soriano catheter. I will start him on Flomax. #3 pubic area/penile edema and erythema: Lower pubic area is edematous, no significant erythema. Penis is significantly erythematous, edematous. Scrotum is minimally edematous, no significant erythema. I think this is all because of the fluid coming down from the abdomen during the manipulation during surgery. He was started on IV cefazolin empirically. Plan: BMP, urinalysis, CBC, continue empiric IV cefazolin. #4 depression: Continue Wellbutrin. #3 DVT prophylaxis: SCDs. This note was generated with SoundSen[employer]ation[employer] software. It may contain incorrect words, spelling, and punctuation that were not noted in checking the note before signing. Inpatient E&M: 44251 Subs Hosp L2
[2020-05-19] MEDS: 0.9% Normal Saline 1,000 ML 60 ML IV (16:18)
[2020-05-19 17:07] LABS: Bacteria 0 SEEN /hpf (None Seen); Mucous, Urine 0 SEEN /hpf (<or=2+); Red Blood Cells-Urine 0 SEEN /hpf (0-5); Squamous Epithelial Cells - UA 0 SEEN /hpf (0-5); White Blood Cells 0 SEEN /hpf (0-5)
[2020-05-19 17:09] LABS: Color, Urine Yellow (Yellow); Glucose, Dipstick Normal (Normal); Ketone-Dipstick Negative (Negative); Leukocyte Esterase-Dipstick Negative /ul (Negative); Nitrite-Dipstick Negative (Negative); Occult Blood-Urine 25 /ul (Negative); Protein-Dipstick Negative (Negative); Specific Gravity, Urine 1.005 (1.002-1.030); Urine Bilirubin Dipstick Negative (Negative); Urine Clarity Clear (Clear); Urine Urobilinogen Normal (Normal)
[2020-05-19] MEDS: Cefazolin 1 GM/50 ML BAG IV ×2 (17:14→21:20)
[2020-05-19] MEDS: Tamsulosin HCl 0.4 MG Capsule PO (18:29)
[2020-05-19] MEDS: oxyCODONE 5 MG Tablet PO (18:31)
[2020-05-20] VITALS (7 sets, daily range): BP systolic 104–124; BP diastolic 64–71; PULSE 90–97; RESP 18–20; TEMP 36.5–36.9; O2SAT 94–100
[2020-05-20] MEDS: oxyCODONE 5 MG Tablet PO ×3 (02:48→17:11)
[2020-05-20 06:33] LABS: Anion Gap 3 (5-15); BUN 7 mg/dL (7-18); BUN/Creat Ratio 7.5 RATIO (10-20); Calcium,Total 7.9 mg/dL (8.5-10.1); Chloride 108 mmol/L (98-107); Creatinine, Serum 0.93 mg/dL (0.70-1.30); EST Glomerular Filtration Rate 91 mL/min (>60); Est Glom Filt Rate - Afr Amer 110 mL/min (>60); Glucose 99 mg/dL (74-106); Potassium 3.6 mmol/L (3.5-5.1); Sodium Level 139 mmol/L (136-145)
[2020-05-20] MEDS: Morphine 2 MG/ML Syringe IV (06:40)
[2020-05-20] MEDS: Cefazolin 1 GM/50 ML BAG IV ×3 (06:40→21:15)
--- NOTE | 2020-05-20 08:36 | PCM.PROGNOTE ---
Patient Problems: Active and Suspected Problems (Last Reviewed 07/28/17 @ 13:08 by Milady Douglas) DDD (degenerative disc disease) (Acute) Subjective: Chief complaint: Follow-up after consultation for postoperative medical management. Patient seen and examined. No acute events overnight. Today, he is feeling much better. Back pain is significantly improved and it is manageable. Swelling of the penis and pubic area is improving as well. Denies fever or chills. Vital signs are stable. - Physical Exam Vitals/I&O's: Vital Signs Temp Pulse Resp BP Pulse Ox 97.7 F L 92 18 124/69 H 95 05/20/20 02:51 05/20/20 02:51 05/20/20 02:51 05/20/20 02:51 05/20/20 02:51 Oxygen Flow Rate (L/min) 6 Oxygen Delivery Method Room Air Weight: 149 lb 14.629 oz Body Mass Index (BMI) 22.1 Intake and Output for Last 24 Hours 05/18/20 05/19/20 05/20/20 23:59 23:59 23:59 Intake Total 3285 / 3285 3797.00 / 3797.00 581 / 581 Output Total 1890 / 1890 2700 / 2700 500 / 500 Balance 1395 / 1395 1097.00 / 1097.00 81 / 81 General: Alert, Oriented x3, Cooperative, No apparent distress HEENT: Atraumatic, PERRLA, EOMI, Normocephalic Oral: Moist Mucosa, No Gingival or Mucosal Lesions/ Ulcerations Neck: Supple, No JVD, Negative Carotid Bruits, Trachea Midline, Thyroid Normal Size and Texture Lungs: Clear to auscultation, Normal air movement, No rhonchi, No wheeze, No rales Cardiovascular: Regular rate, Regular Rhythm, Normal S1, Normal S2, PMI Normal Abdomen: Bowel Sounds Present, Soft, Non Tender, Non-Distended, No Hepato-splenomegaly Extremities: No clubbing, No cyanosis, No edema Skin: No rashes, No breakdown Lymphatic: No Cervical, Supraclavicular, or Inguinal Adenopathy Neurological: Cranial nerves II-XII grossly intact, Neuro grossly intact Psych/Mental Status: Normal Affect, Appropriate Laboratory Results 05/19/20 14:54: WBC 12.3 H, RBC 3.44 L, Hgb 11.1 L, Hct 32.2 L, MCV 93.6, MCH 32.3 H, MCHC 34.5, RDW Std Deviation 39.6, RDW Coeff of Gabriella 11.7, Plt Count 152, MPV 9.1, Immature Gran % (Auto) 0.500, Neut % (Auto) 76.9 H, Lymph % (Auto) 11.0 L, [place] % (Auto) 10.2 H, Eos % (Auto) 1.1, Baso % (Auto) 0.3, Absolute Neuts (auto) 9.5 H, Absolute Lymphs (auto) 1.35, Nucleated RBC % 0 05/19/20 17:00: Urine Color Yellow, Urine Clarity Clear, Urine pH 7.0, Ur Specific [place] 1.005, Urine Protein Negative, Urine Glucose (UA) Normal, Urine Ketones Negative, Urine Occult Blood 25 H, Urine Nitrite Negative, Urine Bilirubin Negative, Urine Urobilinogen Normal, Ur Leukocyte Esterase Negative, Urine RBC 0 SEEN, Urine WBC 0 SEEN, Ur Squamous Epith Cells 0 SEEN, Urine Bacteria 0 SEEN, Urine Mucus 0 SEEN 05/20/20 04:30: Sodium 139, Potassium 3.6, Chloride 108 H, Carbon Dioxide 28.0, Anion Gap 3 L, BUN 7, Creatinine 0.93, Estim Creat Clear Calc 91.40, Est GFR (MDRD) Af Amer 110, Est GFR (MDRD) Non-Af 91, BUN/Creatinine Ratio 7.5 L, Glucose 99, Calcium 7.9 L Current Medications Acetaminophen (Acetaminophen 500 Mg Tablet) 1,000 mg PO Q8H PRN PRN PRN Reason: Pain Score 1-10 Last Admin: 05/19/20 14:05 Dose: 1,000 mg Documented by: Bupropion HCl (Bupropion (Xl) 150 Mg Tablet.Xl) 450 mg PO DAILY [facility] Last Admin: 05/19/20 09:11 Dose: 450 mg Documented by: Diazepam (Diazepam 5 Mg Tablet) 10 mg PO Q6H PRN PRN PRN Reason: Muscle Spasms Last Admin: 05/19/20 01:48 Dose: 10 mg Documented by: Famotidine (Famotidine 20 Mg Tablet) 20 mg PO BID [facility] Last Admin: 05/19/20 21:21 Dose: 20 mg Documented by: Sodium Chloride () 250 mls @ 15 mls/hr IV .[id number] PRN PRN Reason: Saline Flush Sodium Chloride () 250 mls @ 15 mls/hr IV .[id number] PRN PRN Reason: Additional IVPB Infusion Cefazolin Sodium () 1 gm in 50 mls @ 100 mls/hr IV Q8 [facility] Last Infusion: 05/20/20 07:10 Dose: Infused Documented by: Sodium Chloride () 1,000 mls @ 60 mls/hr IV .[id number] [facility] Last Infusion: 05/20/20 07:10 Dose: 60 mls/hr Documented by: Morphine Sulfate (Morphine 4 Mg/Ml Syringe) 2 - 4 mg IV Q2H PRN PRN PRN Reason: Pain Score 6-10 Last Admin: 05/19/20 14:14 Dose: 4 mg Documented by: Morphine Sulfate (Morphine 2 Mg/Ml Syringe) 2 - 4 mg IV Q2H PRN PRN PRN Reason: Pain Score 6-10 Last Admin: 05/20/20 06:40 Dose: 2 mg Documented by: Nutritional Formula (Lactose Free) (Ensure Clear 120 Ml Liquid) [facility] Last Admin: 05/19/20 18:29 Dose: 120 ml Documented by: Ondansetron HCl (Ondansetron 4 Mg/2 Ml Vial) 4 mg IV Q8H PRN PRN PRN Reason: NAUSEA Oxycodone HCl (Oxycodone 5 Mg Tablet) 5 - 10 mg PO Q6H PRN PRN PRN Reason: Pain Score 4-10 Last Admin: 05/20/20 02:48 Dose: 10 mg Documented by: Senna/Docusate Sodium (Senna/Docusate Sodium 1 Tablet) 2 tablet PO BID [facility] Last Admin: 05/19/20 21:21 Dose: 2 tablet Documented by: Sodium Chloride (0.9% Nacl Peripheral Flush Adult/Peds) 5 - 15 ml IV UD PRN PRN Reason: SALINE FLUSH Last Admin: 05/19/20 14:14 Dose: 10 ml Documented by: Sodium Chloride (0.9% Saline Lock 10 Ml Syringe) 10 - 40 ml IV UD PRN PRN Reason: SALINE FLUSH Tamsulosin HCl (Tamsulosin Hcl 0.4 Mg Capsule) 0.4 mg PO DAILY@1730 [facility] Last Admin: 05/19/20 18:29 Dose: 0.4 mg Documented by: Tramadol HCl (Tramadol 50 Mg Tablet) 50 - 100 mg PO Q6H PRN PRN PRN Reason: Pain Score 4-5 Last Admin: 05/18/20 10:01 Dose: 100 mg Documented by: Zolpidem Tartrate (Zolpidem Tartrate 5 Mg Tablet) 5 mg PO QHS PRN PRN PRN Reason: INSOMNIA Medical Necessity - Tobacco Use Smoking Status: Current some day smoker Tobacco Use: Chew Assessment/Plan All Active Problems (Last Reviewed 07/28/17 @ 13:08 by Milady Douglas) DDD (degenerative disc disease) (Acute) This is a 49 years old male patient underwent elective L4-L5 anterior lumbar interbody fusion, L4-L5 insertion of cage and application of spine plate for L4-L5 disc herniation with instability and intractable low back pain. #1 status post anterior lumbar interbody fusion of L4-L5/insertion of cage at L4-L5 with application of spine plate: This was done for L4-L5 degenerative disc disease with instability and intractable low back pain. Postoperative day 3. This morning, patient is feeling better, back pain is getting better as well. He is on IV morphine and OxyIR as needed for pain as well as tramadol. Spine surgery on the case. Plan: DC Soriano catheter, ambulate, regular diet and I think patient can go home today. #2 urinary retention: He is on Flomax. Secondary to swelling of the penis which is probably due fluid from the abdomen that came down through the inguinal canal. Plan to DC Soriano catheter today, ambulate. #3 pubic area/penile edema and erythema: Lower pubic area is edematous, no significant erythema. Penis is significantly erythematous, edematous. Scrotum is minimally edematous, no significant erythema. I think this is all because of the fluid coming down from the abdomen during the manipulation during surgery. Urinalysis was unremarkable. He did have minimal leukocytosis, has been afebrile. BMP was unremarkable. Today, swelling of the penis and pubic area is improving. Plan: DC Soriano catheter. #4 depression: Continue Wellbutrin. #3 DVT prophylaxis: SCDs. This note was generated with codebenderation software. It may contain incorrect words, spelling, and punctuation that were not noted in checking the note before signing. Inpatient E&M: 19106 Subs Hosp L2
[2020-05-20] MEDS: buPROPion (XL) 150 MG TABLET.XL 450 MG PO (10:22)
[2020-05-20] MEDS: Senna/Docusate Sodium 1 Tablet 2 TABLET PO ×2 (10:22→21:16)
[2020-05-20] MEDS: Famotidine 20 MG Tablet PO ×2 (10:22→21:16)
[2020-05-20] MEDS: Ensure Clear 120 ML Liquid PO ×2 (12:21→17:11)
[2020-05-20] MEDS: 0.9% NaCl Peripheral Flush Adult/Peds IV ×2 (14:42→15:30)
--- NOTE | 2020-05-20 14:48 | PCM.PN.BLA ---
Progress Note Postop day #3: Patient is seen on rounds. Still complaining of #1 back pain #2 abdominal discomfort. Upon examination his swollen penis and scrotal sacs are much better than they were yesterday he has a significant ileus but he is now having a lot of flatulence. His abdomen is swollen and firmer than it was yesterday. But with the passing of gas it is obvious that it is improving. Been doing his walking. He states that his back does feel a bit better than it did yesterday even though it still hurts significantly. At this point progress is satisfactory not exactly where I would like him to be. Perhaps he will be able to go home tomorrow however the ileus will have to improve significantly before I will either feed him or let him go home.
[2020-05-20] MEDS: Acetaminophen 500 MG Tablet 1000 MG PO (15:17)
[2020-05-20] MEDS: diazePAM 5 MG Tablet 10 MG PO (15:40)
[2020-05-20] MEDS: Tamsulosin HCl 0.4 MG Capsule PO (17:11)
[2020-05-20] MEDS: 0.9% Saline Lock 10 ML Syringe IV (21:16)
[2020-05-20] MEDS: traMADol 50 MG Tablet PO (21:18)
[2020-05-21] MEDS: oxyCODONE 5 MG Tablet PO ×3 (00:03→13:36)
[2020-05-21] MEDS: Zolpidem Tartrate 5 MG Tablet PO ×2 (00:04→22:54)
[2020-05-21] MEDS: Acetaminophen 500 MG Tablet 1000 MG PO (00:04)
[2020-05-21 04:31] VITALS: BP 115/73; PULSE 81; RESP 18; TEMP 37.2; O2SAT 95
[2020-05-21] MEDS: Cefazolin 1 GM/50 ML BAG IV ×3 (06:02→21:59)
[2020-05-21] MEDS: 0.9% NaCl Peripheral Flush Adult/Peds IV ×3 (06:02→22:52)
[2020-05-21 07:07] VITALS: O2SAT 94
[2020-05-21 08:44] VITALS: BP 116/72; PULSE 96; RESP 16; TEMP 36.7; O2SAT 96
[2020-05-21] MEDS: Ensure Clear 120 ML Liquid PO ×3 (09:05→18:34)
[2020-05-21] MEDS: Famotidine 20 MG Tablet PO ×2 (09:07→22:00)
[2020-05-21] MEDS: buPROPion (XL) 150 MG TABLET.XL 450 MG PO (09:07)
[2020-05-21] MEDS: Senna/Docusate Sodium 1 Tablet 2 TABLET PO ×2 (09:07→22:00)
[2020-05-21] MEDS: diazePAM 5 MG Tablet 10 MG PO (11:45)
[2020-05-21 15:24] VITALS: BP 109/61; PULSE 95; RESP 18; TEMP 37.3; O2SAT 93
--- NOTE | 2020-05-21 15:45 | PCM.PN.BLA ---
Progress Note Postop day #4: Is seen on rounds. His bowel sounds are still hypoactive. His back feels a little better even than yesterday. His leg pain of course is gone on the left side. Things are dry I did remove the anterior dressing he has some blisters from swelling on the left side but this should be okay over time. Logically he is intact. Trouble again with catheters including a straight cath. Likewise his penis is again swollen though not as bad as it was 2 days ago. Continue the IV antibiotics just in case there is a cellulitis. I discussed we decided that we would keep the catheter in when he goes home and may keep him on some Cipro Floxin and then his family doctor can take it out in a week and hope that he can then go. The case with Dr. Wilcox and we were able to get Dr. Wright before he goes on vacation. He is still on clear liquids for now tentatively we will send him home tomorrow. STROKE Vital Signs/Narrative: Vital Signs Temp Pulse Resp BP Pulse Ox 05/21/20 15:24 99.1 F 95 18 109/61 93
[2020-05-21] MEDS: Tamsulosin HCl 0.4 MG Capsule 0.8 MG PO (16:47)
[2020-05-21] MEDS: traMADol 50 MG Tablet PO (16:52)
--- NOTE | 2020-05-21 17:52 | PCM.PROGNOTE ---
Patient Problems: Active and Suspected Problems (Last Reviewed 07/28/17 @ 13:08 by Milady Douglas) DDD (degenerative disc disease) (Acute) Subjective: Patient was seen and examined today, he had some urinary retention today and a Soriano catheter had to be inserted. I talked with Dr. Turner about this, patient had seen Dr. Wright in the past, I talked with Dr. Wright briefly by phone today. I will increase the patient's Flomax to 0.8 mg daily. - Physical Exam Vitals/I&O's: Vital Signs Temp Pulse Resp BP Pulse Ox 99.1 F 95 18 109/61 93 05/21/20 15:24 05/21/20 15:24 05/21/20 15:24 05/21/20 15:24 05/21/20 15:24 Oxygen Flow Rate (L/min) 6 Oxygen Delivery Method Room Air Weight: 68 kg Body Mass Index (BMI) 22.1 Intake and Output for Last 24 Hours 05/19/20 05/20/20 05/21/20 23:59 23:59 23:59 Intake Total 3797.00 / 3797.00 1617 / 1617 70 / 70 Output Total 2700 / 2700 1600 / 1600 425 / 425 Balance 1097.00 / 1097.00 -355 / -355 General: Alert, Oriented x3, Cooperative, No apparent distress, Well developed, Well nourished HEENT: Atraumatic, PERRLA, EOMI, Normocephalic Oral: Moist Mucosa Neck: Supple, No JVD, Trachea Midline, Thyroid Normal Size and Texture Lungs: Clear to auscultation, Normal air movement, No rhonchi, No wheeze, No rales Cardiovascular: Regular rate, Regular Rhythm, Normal S1, Normal S2, No murmurs, PMI Normal, No rub noted Abdomen: Bowel Sounds Present, Soft, Non Tender, Non-Distended Extremities: No clubbing, No cyanosis, No edema, Capillary Refill Less than 3 Seconds Skin: No rashes, No breakdown Musculoskeletal: No Tenderness to Palpation of Joints or Extremities Neurological: Cranial nerves II-XII grossly intact, Neuro grossly intact, Muscle tone normal Psych/Mental Status: Normal Affect, Appropriate, Alert and oriented to time, place, person, mood and affect Current Medications Acetaminophen (Acetaminophen 500 Mg Tablet) 1,000 mg PO Q8H PRN PRN PRN Reason: Pain Score 1-10 Last Admin: 05/21/20 00:04 Dose: 1,000 mg Documented by: Bupropion HCl (Bupropion (Xl) 150 Mg Tablet.Xl) 450 mg PO DAILY [facility] Last Admin: 05/21/20 09:07 Dose: 450 mg Documented by: Diazepam (Diazepam 5 Mg Tablet) 10 mg PO Q6H PRN PRN PRN Reason: Muscle Spasms Last Admin: 05/21/20 11:45 Dose: 10 mg Documented by: Famotidine (Famotidine 20 Mg Tablet) 20 mg PO BID [facility] Last Admin: 05/21/20 09:07 Dose: 20 mg Documented by: Sodium Chloride () 250 mls @ 15 mls/hr IV .[id number] PRN PRN Reason: Saline Flush Sodium Chloride () 250 mls @ 15 mls/hr IV .[id number] PRN PRN Reason: Additional IVPB Infusion Cefazolin Sodium () 1 gm in 50 mls @ 100 mls/hr IV Q8 [facility] Last Infusion: 05/21/20 15:50 Dose: 0 mls/hr Documented by: Morphine Sulfate (Morphine 4 Mg/Ml Syringe) 2 - 4 mg IV Q2H PRN PRN PRN Reason: Pain Score 6-10 Last Admin: 05/19/20 14:14 Dose: 4 mg Documented by: Morphine Sulfate (Morphine 2 Mg/Ml Syringe) 2 - 4 mg IV Q2H PRN PRN PRN Reason: Pain Score 6-10 Last Admin: 05/20/20 06:40 Dose: 2 mg Documented by: Nutritional Formula (Lactose Free) (Ensure Clear 120 Ml Liquid) 120 ml PO TIDCM [facility] Last Admin: 05/21/20 11:45 Dose: 120 ml Documented by: Ondansetron HCl (Ondansetron 4 Mg/2 Ml Vial) 4 mg IV Q8H PRN PRN PRN Reason: NAUSEA Oxycodone HCl (Oxycodone 5 Mg Tablet) 5 - 10 mg PO Q6H PRN PRN PRN Reason: Pain Score 4-10 Last Admin: 05/21/20 13:36 Dose: 10 mg Documented by: Senna/Docusate Sodium (Senna/Docusate Sodium 1 Tablet) 2 tablet PO BID [facility] Last Admin: 05/21/20 09:07 Dose: 2 tablet Documented by: Sodium Chloride (0.9% Nacl Peripheral Flush Adult/Peds) 5 - 15 ml IV UD PRN PRN Reason: SALINE FLUSH Last Admin: 05/21/20 06:02 Dose: 10 ml Documented by: Sodium Chloride (0.9% Saline Lock 10 Ml Syringe) 10 - 40 ml IV UD PRN PRN Reason: SALINE FLUSH Last Admin: 05/20/20 21:16 Dose: 20 ml Documented by: Tamsulosin HCl (Tamsulosin Hcl 0.4 Mg Capsule) 0.8 mg PO DAILY@1730 [facility] Last Admin: 05/21/20 16:47 Dose: 0.8 mg Documented by: Tramadol HCl (Tramadol 50 Mg Tablet) 50 - 100 mg PO Q6H PRN PRN PRN Reason: Pain Score 4-5 Last Admin: 05/21/20 16:52 Dose: 100 mg Documented by: Zolpidem Tartrate (Zolpidem Tartrate 5 Mg Tablet) 5 mg PO QHS PRN PRN PRN Reason: INSOMNIA Last Admin: 05/21/20 00:04 Dose: 5 mg Documented by: Medical Necessity - Tobacco Use Smoking Status: Current some day smoker Tobacco Use: Chew Assessment/Plan All Active Problems (Last Reviewed 07/28/17 @ 13:08 by Milady Douglas) DDD (degenerative disc disease) (Acute) #1 urinary retention-probably secondary to BPH-patient's Flomax was increased 2.8 mg daily, he will need to be discharged with a Soriano catheter and follow-up with urology as an outpatient. 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
[2020-05-21] MEDS: Morphine 4 MG/ML Syringe IV (18:38)
[2020-05-21 21:49] VITALS: BP 109/70; PULSE 102; RESP 18; TEMP 36.5; O2SAT 95
[2020-05-21] MEDS: Morphine 2 MG/ML Syringe IV (21:53)
[2020-05-21 22:07] VITALS: PULSE 102
[2020-05-22] MEDS: oxyCODONE 5 MG Tablet PO ×2 (00:41→08:37)
[2020-05-22] MEDS: Acetaminophen 500 MG Tablet 1000 MG PO ×2 (00:42→08:37)
[2020-05-22 04:10] VITALS: BP 111/72; PULSE 83; RESP 18; TEMP 36.5; O2SAT 96
[2020-05-22] MEDS: traMADol 50 MG Tablet PO (04:13)
[2020-05-22] MEDS: 0.9% NaCl Peripheral Flush Adult/Peds IV (05:55)
[2020-05-22] MEDS: Cefazolin 1 GM/50 ML BAG IV (05:56)
[2020-05-22 08:10] VITALS: BP 108/74; PULSE 92; RESP 16; TEMP 36.6; O2SAT 97
--- NOTE | 2020-05-22 08:11 | NURSING ---
PT UP TO BR, HAD MODERATE LOOSE BM
--- NOTE | 2020-05-22 08:14 | DCINST_ITS ---
- Discharge Diagnoses Current Active Problems: Current Active and Chronic Problems (Last Reviewed 07/28/17 @ 13:08 by Milady Douglas) DDD (degenerative disc disease) (Acute) You will use the following diet at home:: No restrictions Your food should be the consistency of: Regular Your liquids should be the consistency of: Regular/Thin Discharge Activity: Return to Normal Activity Weight Bearing Status: Full weight bearing Additional Instructions: May shower today, keep incision clean and dry You may take Miralax daily if Colace doesn't help Allergies/Adverse Reactions: Allergies No Known Allergies Allergy (Verified 05/17/20 06:36) Medications to take at Discharge Cyclobenzaprine HCl 10 mg PO TID PRN PRN 04/27/20 Bupropion HCl [Wellbutrin Sr] 450 mg PO DAILY 05/07/20 Acetaminophen [Tylenol] 1,000 mg PO Q8H PRN PRN tablet 05/22/20 Ciprofloxacin [Cipro] 250 mg PO BID #14 tab 05/22/20 Docusate Sodium [Colace] 100 mg PO DAILY #0 05/22/20 Oxycodone [Oxyir] 5 - 10 mg PO Q6H PRN PRN 7 Days #20 tablet 05/22/20 Tamsulosin HCl [Flomax] 0.8 mg PO DAILY@1730 #60 capsule 05/22/20 The following prescriptions were given: Ciprofloxacin [Cipro] 250 mg PO BID #14 tab Transmission Status: Pending to [id number] Tamsulosin HCl [Flomax] 0.8 mg PO DAILY@1730 #60 capsule Transmission Status: Pending to [facility][id number] Oxycodone [Oxyir] 5 - 10 mg PO Q6H PRN PRN 7 Days #20 tablet PRN Reason: Pain Score 4-10 Transmission Status: Received by [id number] Primary Care Physician: Jacob Curry MD [Primary Care Provider] - Please follow up with your Primary Care Physician in: next Thursday to get your catheter removed Test Results: Test results from this visit will be discussed in further detail at your follow- up appointment, if applicable. Please Follow Up With: Elliott Turner DO When: next Thursday
[2020-05-22] MEDS: Ensure Clear 120 ML Liquid PO (08:17)
--- NOTE | 2020-05-22 17:15 | PCM.PROGNOTE ---
Patient Problems: Active and Suspected Problems (Last Reviewed 07/28/17 @ 13:08 by Milady Douglas) DDD (degenerative disc disease) (Acute) Subjective: Patient was seen and examined today, I talked briefly with Dr. Price about his discharge today and he stated that he was okay with discharging the patient if I felt he was medically stable which I do. Patient will need to go home with a catheter and a leg bag, I have decided to give him 1 weeks worth of ciprofloxacin until he has a catheter removed next Thursday by his PCP. I have also placed the patient on Flomax as an outpatient. Patient will need follow-up with urology if he continues to have problems voiding. Objective: General: Alert, Oriented x3, Cooperative, No apparent distress, Well developed, Well nourished HEENT: Atraumatic, PERRLA, EOMI, Normocephalic Oral: Moist Mucosa Neck: Supple, No JVD, Trachea Midline, Thyroid Normal Size and Texture Lungs: Clear to auscultation, Normal air movement, No rhonchi, No wheeze, No rales Cardiovascular: Regular rate, Regular Rhythm, Normal S1, Normal S2, No murmurs, PMI Normal, No rub noted Abdomen: Bowel Sounds Present, Soft, Non Tender, Non-Distended Extremities: No clubbing, No cyanosis, No edema, Capillary Refill Less than 3 Seconds Skin: No rashes, No breakdown Musculoskeletal: No Tenderness to Palpation of Joints or Extremities Neurological: Cranial nerves II-XII grossly intact, Neuro grossly intact, Muscle tone normal Psych/Mental Status: Normal Affect, Appropriate, Alert and oriented to time, place, person, mood and affect - Physical Exam Vitals/I&O's: Vital Signs Temp Pulse Resp BP Pulse Ox 97.8 F 92 16 108/74 97 05/22/20 08:10 05/22/20 08:10 05/22/20 08:10 05/22/20 08:10 05/22/20 08:10 Oxygen Flow Rate (L/min) 6 Oxygen Delivery Method Room Air Weight: 68 kg Body Mass Index (BMI) 22.1 Intake and Output for Last 24 Hours 05/20/20 05/21/20 05/22/20 23:59 23:59 23:59 Intake Total 1617 / 1617 120 / 370 500 / 500 Output Total 1600 / 1600 1425 / 2550 1375 / 1375 Balance -1305 / -2180 -875 / -875 Medical Necessity - Tobacco Use Smoking Status: Current some day smoker Tobacco Use: Chew Assessment/Plan All Active Problems (Last Reviewed 07/28/17 @ 13:08 by Milady Douglas) DDD (degenerative disc disease) (Acute) #1 urinary retention-probably secondary to BPH-patient will need to go home with the catheter and a leg bag, I have instructed him to contact his PCP and have the catheter removed next Thursday. 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
--- NOTE | 2020-05-25 09:51 | PCM.DC.SUM ---
Discharge Date and Diagnosis - Problem List Patient Problems: Active and Suspected Problems (Last Reviewed 07/28/17 @ 13:08 by Milady Douglas) DDD (degenerative disc disease) (Acute) Date of Admission: 05/17/20 Date of Discharge: 05/22/20 - Primary Discharge Diagnosis Acute Problems: Active Problems (Last Reviewed 07/28/17 @ 13:08 by Milady Douglas) DDD (degenerative disc disease) (Acute) Hospital Course and Treatment Summary of Care Provided: Mr. Leong was admitted on May 17, 2020 and was discharged on May 22, 2020. The date of admission he underwent a 360 degree fusion with decompression at the L4-5 level. He tolerated the procedure well. Operatively he suffered from a significant ileus. To be clear almost all 360 degree fusion patient's obtain an ileus. This to be expected and this is not a complication. Is usually in the normal course of recovery. Other and main problem that we had with him postoperatively was that he could not urinate after the catheter was removed. Could only urinate perhaps 100 cc at a time but obviously had retention. Right cast him so many times that he even had a swelling of his penis the erythema around of the penis. Covered him with antibiotics just in case it was infected although it is doubtful that it was. Prince Garcia and I discussed the case with Dr. Wright by phone. Fortunately he was about to go on vacation with his family. In the last he told us to send him home with a catheter in place and his family doctor Jacob Curry would remove the catheter in a week. We also covered him with antibiotics for this even though said that it was not entirely necessary. Operatively his leg pain was completely gone. Discharge she had reasonable bowel sounds told to start advancing his diet the following day. Given opioids for pain. This was prescribed by Dr. Wilcox. He also prescribed Flomax. It is thought that he probably more than likely has benign prostatic hypertrophy. The urologist will deal with that as soon as he gets back from vacation. I will see the patient again about 12 or 13 days postoperatively. This is the end of discharge summary on Kendrick Melendez. Patient Problems: Active and Suspected Problems (Last Reviewed 07/28/17 @ 13:08 by Milady Douglas) DDD (degenerative disc disease) (Acute) - Physical Exam Vitals/I&O's: Vital Signs Temp Pulse Resp BP Pulse Ox 97.8 F 92 16 108/74 97 05/22/20 08:10 05/22/20 08:10 05/22/20 08:10 05/22/20 08:10 05/22/20 08:10 Oxygen Flow Rate (L/min) 6 Oxygen Delivery Method Room Air Weight: 149 lb 14.629 oz Body Mass Index (BMI) 22.1 Discharge Activity: Return to Normal Activity Weight Bearing Status: Full weight bearing Home Medications: Medications to take at Discharge Cyclobenzaprine HCl 10 mg PO TID PRN PRN 04/27/20 Bupropion HCl [Wellbutrin Sr] 450 mg PO DAILY 05/07/20 Acetaminophen [Tylenol] 1,000 mg PO Q8H PRN PRN tablet 05/22/20 Ciprofloxacin [Cipro] 250 mg PO BID #14 tab 05/22/20 Docusate Sodium [Colace] 100 mg PO DAILY #0 05/22/20 Oxycodone [Oxyir] 5 - 10 mg PO Q6H PRN PRN 7 Days #20 tablet 05/22/20 Tamsulosin HCl [Flomax] 0.8 mg PO DAILY@1730 #60 capsule 05/22/20 Following Prescriptions Were Given to Patient: Ciprofloxacin [Cipro] 250 mg PO BID #14 tab Transmission Status: Received by [id number] Tamsulosin HCl [Flomax] 0.8 mg PO DAILY@1730 #60 capsule Transmission Status: Received by [id number] Oxycodone [Oxyir] 5 - 10 mg PO Q6H PRN PRN 7 Days #20 tablet PRN Reason: Pain Score 4-10 Transmission Status: Received by [id number] Primary Care Physician: Jacob Curry MD [Primary Care Provider] - Please follow up with your Primary Care Physician in: next Thursday to get your catheter removed Please Follow Up With: Elliott Turner DO When: next Thursday Medical Necessity - Tobacco Use Smoking Status: Current some day smoker Tobacco Use: Chew Meaningful Use Info Meaningful Use Diagnoses (Choose all that apply): None applicable
== END 2020-05-22 08:55 | disposition home or self-care (01) | DRG 454 ==
LOC: ACINP 05:05 → MS3 05-18 08:26
PROVIDERS: Anesthesiology; Hospitalist; Admitting Provider Orthopaedic Surgery; PCP Family Medicine; Referring Provider Orthopaedic Surgery; Visit Provider Internal Medicine
PROC: 0SG00A0 Fusion of Lumbar Vertebral Joint with Interbody Fusion Device, Anterior Approach, Anterior Column, Open Approach (ICD-10-PCS; principal; 2020-05-17 07:00)
DX: M51.16 Intervertebral disc disorders with radiculopathy, lumbar region (principal); G83.4 Cauda equina syndrome; K56.7 Ileus, unspecified; F32.9 Major depressive disorder, single episode, unspecified; Z20.828 Contact with and (suspected) exposure to other viral communicable diseases; F17.220 Nicotine dependence, chewing tobacco, uncomplicated; R33.8 Other retention of urine; Z79.899 Other long term (current) drug therapy; N48.89 Other specified disorders of penis; N40.1 Benign prostatic hyperplasia with lower urinary tract symptoms; F41.9 Anxiety disorder, unspecified
CPT/HCPCS: 36415; 72020; 80048; 81001; 82962; 83735; 85025; 86703; 86704; 86705; 86706; 86708; 86709; 86803; 87081; 87340; 87426; 88304; 93005; 99251; C1713; C9803; J7030; J7120; A4216; G0463; J2405

== ENCOUNTER → 2020-05-28 09:50 | Outpatient (CLI) | payer OTHER, SELFPAY ==
[2020-05-17 16:36] VITALS: BMI 22.1
--- NOTE | 2020-05-28 09:52 | CT_ITS ---
STUDY: CT ABDOMEN AND PELVIS WITHOUT CONTRAST REASON FOR EXAM: Male, 49 years old. LEFT GROIN MASS, POSS HERNIA -- RECENT LUMBAR FUSION, 2 PRIOR HERNIA REPAIRS RADIATION DOSAGE (If Supplied By Facility): CTDIvol = ( 6.04 ) mGy, DLP = ( 309.79 ) mGycm TECHNIQUE: Transaxial images were obtained from the dome of the diaphragm to the symphysis pubis without oral contrast, and without intravenous contrast. Sagittal and coronal images were reconstructed. Individualized dose optimization techniques were used for this CT. COMPARISON: Comparison is made with prior study dated 09/06/2018. FINDINGS: The visualized lung bases are unremarkable. Minimal degree of anterior pericardial thickening. Normal liver. Normal gallbladder and extrahepatic biliary system. Normal spleen. Normal pancreas. Normal bilateral adrenal glands. 21.6 cm x 1.6 cm hypodense nodule in the anterior superior pole of the right kidney. This may represent a tiny cyst. Faint calcifications also seen in the upper pole calyx of the right kidney. Normal left kidney. There is a small hiatal hernia. Normal small intestine. Normal colon. The appendix is visualized and appears normal. There is diffuse atherosclerotic calcification of the abdominal aorta, without a demonstrated aneurysm. Normal inferior vena cava. Surgical clips are seen in the left lower retroperitoneum most likely related to the anterior spinal fusion. Normal urinary bladder. There is a right-sided inguinal hernia containing adipose tissue. Metallic sutures are seen overlying the lower lumbar spine and compared with prior lumbar surgery. The patient is status post anterior and posterior fusion at the L4-L5 level with placement of a prosthetic disc. CT/Abdomen/Pelvis without Cont IMPRESSION: Small left inguinal hernia containing fat. Electronically Signed: Long Phelan MD at 10:43 EDT , Service support ,
== END ==
PROVIDERS: PCP Family Medicine; Referring Provider Family Medicine; Visit Provider Family Medicine
DX: R19.09 Other intra-abdominal and pelvic swelling, mass and lump (principal)
CPT/HCPCS: 74176

== ENCOUNTER 2020-05-30 11:40 | Day surgery (SDC) | payer OTHER, SELFPAY ==
[2020-05-28 10:22] VITALS: BMI 21.4
[2020-05-30] VITALS (12 sets, daily range): BP systolic 117–135; BP diastolic 80–89; PULSE 74–85; RESP 16; TEMP 36.7–37.3; O2SAT 97–100; BMI 21.9; BMI 20.9
--- NOTE | 2020-05-30 | IMM_PTH ---
PATIENT: ABRAHAM CALIX LOC: [facility] [place] U#:[id number] AGE/SX: 49/M ROOM: RE05/30/[address]: Dr. Marciano Paredes MD : 1970 BED: DIS: 05/30/2020 SPEC #: [id number] RECD: 06/01/20 11:02 STATUS: ARABELLA REQ #: [id number] AUREA: 05/30/20 00:[address]: Marciano Paredes DEPT: IMMUNOHISTOCHEMISTRY RECD BY: Roxana Story ENTERED: 06/01/20 11:07 SP TYPE: IMMUNO OTHR DR: Dr. Jacob Curry MD Tissues: Inguinal region, NOS Procedures: CK8 (initial) MACRO (add) Pankeratin (add) PHYSICIAN & INSTITUTION [place] [address] SPECIMEN INFORMATION: Tissue Source: Inguinal contents Clinical Info: Recurrent left inguinal hernia Specimen Number: [id number] #1 CPT code: 09392, 91576 x2 METHODOLOGY: Deparaffinized sections of prefer/formalin-fixed tissue or PAP/DQ stained slides are incubated with monoclonal/polyclonal antibodies/oligonucleotide probes. Localization is made via biotin free immunoperoxidase method. Appropriate controls are performed and reacted as expected. Results on target cell population are indicated in the following table: RESULTS: ANTIBODY / CLONE RESULT Block 1 CK8 ([id number]) negative AE1-3 (AE1/AE3/PCK26) negative Macro (HAM-56) positive These tests were developed and their performance characteristics determined by [facility]. They may not have been cleared or approved by the U.S. Food and Drug Administration. The FDA has determined that such clearance or approval is not necessary. The above immunohistochemical/dualISH markers are ordered and reviewed by the Pathologist. INTERPRETATION: Inguinal contents: Negative for malignancy. DINAH:ramy 06/04/2020
--- NOTE | 2020-05-30 11:32 | PCM.HP.BLA ---
Problem List (1) Recurrent left inguinal hernia Status: Acute History and Physical Date of Admission: 05/30/20 Intake Intake Visit Reasons: F/U CT RESULTS Allergies No Known Allergies Allergy (Verified 05/28/20 10:23) PFSH Medical History DDD (degenerative disc disease) (Acute) Depression (Acute) Left groin pain (Acute) Surgical History Bilateral inguinal hernia (Acute) H/O foot surgery (Acute) History of back surgery (Acute) Family History Mother Cancer History of heart valve repair Social History (Updated 05/29/20 @ 12:[address] Marciano Paredes MD) Smoking Status: Current some day smoker HPI HPI HPI: ABRAHAM CALIX, is a 49 M who presents to the office today for HPI HPI HPI: ABRAHAM CALIX, is a 49 M who presents to the office today for left groin pain the patient reports that after his recent spinal surgery he started to experience left groin pain. He says this area is also swollen. The patient had several issues with retention during his hospitalization and had swelling of the base of the penis. The patient had bilateral laparoscopic inguinal hernia repair 3 years ago. Patient reports he has had no issues until this episode. ROS General General: No weight change or fatigue Cardio Cardiovascular: No murmur, pacemaker, heart disease, atrial fibrillation, high blood pressure, heart attack, heart stent, palpitations, shortness of breat with exertion or chest pain Psych Psychiatric: No depression or anxiety Resp Respiratory: No shortness of breath, No sleep apnea, No cough, No COPD, No asthma, No emphysema, No wheezing Gastro Gastrointestinal: No abdominal pain, No nausea or vomiting, No diarrhea, No constipation, No blood in stool, No acid reflux, No hemorrhoids, No ulcers, No gallbladder problem, No black,tarry stools Additional Details: Left groin swelling and pain Jr Hematologic: No blood thinners Exam Const General: cooperative Orientation: alert, oriented x3 Resp Effort & Inspection: normal respiratory effort Auscultation: clear to auscultation bilaterally Cardio Rate: regular rate Rhythm: regular rhythm Heart Sounds: no murmurs GI Inspection: non-distended Palpation: soft, nontender Other: Swelling in the left groin with tenderness. Not reducible and no skin changes. Assessment & Plan Problems 1. Recurrent left inguinal hernia K40.91 Plan The patient had a CT scan prior to coming to the office that showed fat in the left inguinal canal which could be a lipoma of the cord versus recurrence of the hernia. The patient is very tender in this area is not reducible. I am unsure why this became an issue at the same time as his spinal surgery. I am unsure if the swelling and he had constricted the blood supply of the lipoma cause acute infarct or if this is a true recurrence but comparing it to the hernia in 2019 he had fat-containing inguinal canal at that time. I discussed local exploration with the patient but he refused at this time. I discussed that if he experienced any worsening pain or fevers or chills he should immediately contact me. Otherwise he will check in with me on Thursday and if this is not improved by then I will perform exploration with possible hernia repair and resection of the fat. Marciano Paredes MD Pager: [facility] [address] [place] [address], [address] [place] [address] Office: Pt had increasing pain and would like this area explored. I discussed local exploration of the left inguinal canal with possible inguinal recurrent hernia repair with mesh. I discussed the procedure in detail as well as the risks including bleeding, infection, injury to spermatic cord or testicular ischemia.
[2020-05-30] MEDS: Lactated Ringers 1,000 ML 100 ML IV (12:32)
--- NOTE | 2020-05-30 13:30 | LIP_PTH ---
PATIENT: ABRAHAM CALIX LOC: [facility] [place] U#:[id number] AGE/SX: 49/M ROOM: RE05/30/[address]: Dr. Marciano Paredes MD : 1970 BED: DIS: 05/30/2020 SPEC #: [id number] RECD: 05/30/20 14:55 STATUS: ARABELLA REQ #: [id number] AUREA: 05/30/20 13:[address]: Marciano Paredes DEPT: SURGICAL PATHOLOGY RECD BY: Kailyn Chan ENTERED: 05/31/20 07:22 SP TYPE: LIPOMA OTHR DR: Dr. Jacob Curry MD Tissues: Inguinal region, NOS Procedures: Surgery Specimen Level III HEADER OPERATION: Exploration left inguinal canal with excision necrotic cord PRE-OP DIAGNOSIS: Recurrent left inguinal hernia TISSUE SUBMITTED: Inguinal contents MICROSCOPIC DIAGNOSIS Inguinal contents: A piece of adipose tissue with focal area of infarction, hemorrhage, fibrinous exudation, acute and chronic inflammation, histiocytic reaction and marked reactive changes. Negative for malignancy. See comment. DINAH:ramy 06/04/2020 COMMENT Immunohistochemistry ([id number]) supports the above diagnosis. Case has been reviewed in consultation with Dr. Garcia who concurs with the above diagnosis. IDC:AM MICROSCOPIC DESCRIPTION Slides are reviewed. GROSS DESCRIPTION Received in fixative is one container labeled with the patient's name and designated inguinal contents. The specimen consists of a piece of hemorrhagic soft tissue measuring 4.5 x 2 x 1 cm. Sections reveal adipose cut surfaces with focal area of hemorrhage. No obvious mass lesion is identified. [employer] M[employer] sections are submitted in two cassettes. / DINAH:ramy 05/31/20 The rest of the specimen is submitted in three core cassettes, 3-5. / DINAH:ramy 06/01/20 TC:5 CPT: 86224
[2020-05-30] MEDS: Cefazolin 2 GM in 0.9% Normal Saline 100 ML IV (13:33)
[2020-05-30] MEDS: Lidocaine 1% /Epi 1:100 (20ml) 20 ML Vial (14:00)
[2020-05-30] MEDS: Bupivacaine Mpf 0.5% 30 ML VIAL (14:00)
--- NOTE | 2020-05-30 14:19 | PCM.OPRPT ---
Problem List (1) Recurrent left inguinal hernia Status: Acute Report of Operation Date of Procedure: 05/30/20 Pre-Operative Diagnosis: Left groin pain Post-Operative Diagnosis: Necrotic left inguinal cord lipoma Surgery/Procedure Performed:: Exploration of left inguinal canal with resection of necrotic cord lipoma Specimen's removed: Left inguinal canal cord lipoma Description of Procedure: Patient was brought back to the operating room and MAC anesthesia was used. The left inguinal region was prepped and draped in usual sterile fashion and incision was marked. The incision was injected with local anesthetic. An incision was made with a scalpel and deepened to the external aponeurosis using electrocautery. The external aponeurosis was nicked with a scalpel and hemostats were used to elevate each side and scissors were used to extend superiorly and inferiorly. The cord was surrounded with a Joce and elevated. The cord. Very inflamed distally. Cremasteric muscles were divided and this revealed a necrotic cord lipoma. The cord lipoma was delivered into the incision and followed superiorly until healthy tissue was encountered. This was tied off using an 0 silk suture and ligated using letter cautery. The remainder of the inguinal cord appeared intact and viable. The inguinal canal was irrigated and suctioned dry. The external aponeurosis was closed using a running 3-0 Vicryl suture. The subcutaneous tissue was irrigated and closed with interrupted 3-0 Vicryl sutures and the incision was closed with a running 4-0 Monocryl. Steri-Strips and bandage were applied. Both testicles were present in the scrotum at the end of the case. - Admit VTE Documentation VTE Mechan Device Prophylaxis: SCD's
--- NOTE | 2020-05-30 14:23 | DCINST_ITS ---
Discharge Diet: Light diet - advance as tolerated Discharge Activity: Return to Normal Activity, May Not Drive - for 2-3 days or while taking narcotic pain meds., May Shower - with the bandage in place 1-2 days after surgery. Lifting Restrictions: None, restrictions already in place from prior surgery Additional Activity Instructions:: Climbing stairs is fine, walking is encouraged. Sitting in bed may be uncomfortable. Do not drive, work heavy equipment of sign legal documents for 24 hours. Ice pack and/or athletic support can provide more comfort. Pain medications may cause nausea, you should typically eat light foods as you take your pain medications. Pain medications may also cause constipation. If you have difficulty with this, discuss with your doctor. Call your doctor if your incision/area has: Continuous Slow Oozing, Sudden Increased Bleeding, Increased Pain/ Swelling, Increased Redness, Foul Smelling Discharge Call your doctor if you observe: Fever of 101 or Higher Suture Line Care: Avoid Pulling/Pushing, Avoid Pinching/Bending Change Dressing in (Days):: 3 - Leave steri-strips for 1 week. May protect with a guaze bandaid. Cleanse incision/area with: Keep Dressing Clean & Dry Allergies/Adverse Reactions: Allergies No Known Allergies Allergy (Verified 05/29/20 13:53) Medications to take at Discharge Cyclobenzaprine HCl 10 mg PO TID PRN PRN 04/27/20 Bupropion HCl [Wellbutrin Sr] 450 mg PO DAILY 05/07/20 Acetaminophen [Tylenol] 1,000 mg PO Q8H PRN PRN tablet 05/22/20 Tamsulosin HCl [Flomax] 0.8 mg PO DAILY@1730 #60 capsule 05/22/20 Senna [Senokot] 1 tablet PO DAILY 05/29/20 Primary Care Physician: Jacob Curry MD [Primary Care Provider] - Test Results: Test results from this visit will be discussed in further detail at your follow- up appointment, if applicable. Please Follow Up With: Marciano Paredes MD When: Please call to schedule 1 week follow up appointment. [phone]
== END 2020-05-30 16:20 | disposition home or self-care (01) ==
LOC: SDC 11:41 → AC 11:46
PROVIDERS: PCP Family Medicine; Referring Provider Surgery; Visit Provider Surgery
PROC: (CPT 55520; principal; 2020-05-30 13:15)
DX: K40.91 Unilateral inguinal hernia, without obstruction or gangrene, recurrent (principal); Z20.828 Contact with and (suspected) exposure to other viral communicable diseases; F32.9 Major depressive disorder, single episode, unspecified; Z79.899 Other long term (current) drug therapy; D17.6 Benign lipomatous neoplasm of spermatic cord; F41.9 Anxiety disorder, unspecified; K58.9 Irritable bowel syndrome, unspecified
CPT/HCPCS: 00920; 55520; 87426; 88304; 88305; 88341; 88342; C9803; J7120

== ENCOUNTER → 2020-06-08 13:45 | Outpatient (CLI) | payer OTHER, SELFPAY ==
[2020-05-30 12:23] VITALS: BMI 20.9
--- NOTE | 2020-06-08 13:48 | US_ITS ---
INDICATION: left testicular pain EXAMINATION: US Scrotum (Contents) TECHNIQUE: Realtime ultrasound of the testicles was performed with grayscale, Color Doppler and spectral Doppler analysis. COMPARISON: None. FINDINGS: RIGHT: TESTIS: Measures 4.2 x 3.1 x 2.1 cm. Normal in size and echotexture, without focal lesion. COLOR DOPPLER: Normal arterial flow present in the testicle with monophasic waveforms. EPIDIDYMIS: Normal in size and echotexture, without focal lesion. [Normal color Doppler flow pattern in the epididymis. HYDROCELE: Small hydrocele. VARICOCELE: None. LEFT: TESTIS: Measures 3.8 x 3.3 x 2.2 cm. Normal in size and echotexture, without focal lesion. COLOR DOPPLER: Normal arterial flow present in the testicle with monophasic waveforms. EPIDIDYMIS: Normal in size and echotexture, without focal lesion. [Normal color Doppler flow pattern in the epididymis. HYDROCELE: Small hydrocele. VARICOCELE: None. OTHER: In the left groin at area of pain, there is a 3.3 x 2.3 x 0.8 cm lymph node. It is reniform in shape and has a fatty hilum. US/Testicular with Arterial Flow IMPRESSION: Normal bilateral testes and epididymides. Left inguinal lymphadenopathy. Small bilateral hydroceles. Electronically Signed: Héctor Du MD at 16:31 EDT Tel , Service support ,
== END ==
PROVIDERS: PCP Family Medicine; Referring Provider Surgery; Visit Provider Surgery
DX: N50.812 Left testicular pain (principal)
CPT/HCPCS: 76870; 93976